=== PATIENT | female | born 1940 | race Caucasian/White ===

== ENCOUNTER 2020-05-22 15:38 | Outpatient (REF) | payer MEDICARE, SELFPAY ==
--- NOTE | ~2020-05-22 | XR_ITS ---
EXAMINATION: XR CHEST CLINICAL INFORMATION: Pleurodynia. COMPARISON: 03/28/2019 TECHNIQUE: 2 views of the chest were obtained. FINDINGS: There is elevation of the left hemidiaphragm with some basilar atelectasis related to distended stomach. No confluent pneumonitis identified. No pneumothorax or pleural effusion. No pleural thickening is appreciated. No destructive bony lesion identified on this plain film study. There is a stable compression fracture of what appears to be L1 body. Small lung volumes. XR/XR chest 2V IMPRESSION: No significant acute parenchymal disease. Elevation of the left hemidiaphragm with some basilar atelectasis.
[2020-05-22 16:20] LABS: MANUAL DIFF FLAG NO
[2020-05-22 16:28] LABS: Basophils Percent Auto 0.4 % (0-2); Eosinophils Absolute Auto 0.2 X10*3/uL (0.0-0.4); Eosinophils Percent Auto 2.2 % (0-4); Hematocrit 36.3 % (37-47); Hemoglobin 11.8 g/dl (12.0-16.0); Imm Gran Abs Auto 0.02 X10*3/uL (0.00-0.03); Imm Gran Pct Auto 0.2 % (0.0-0.4); Lymphocytes Absolute Auto 3.1 X10*3/uL (1.2-4.9); Mean Corpuscular HGB Conc 32.5 g/dl (31.0-35.0); Mean Corpuscular Volume 101.4 fL (80-98); Mean Platelet Volume 9.3 fL (9.4-12.3); Monocytes Percent Auto 10.5 % (2-11); Neutrophils Absolute Auto 4.8 X10*3/uL (2.0-8.3); Neutrophils Percent Auto 52.7 % (45-73); Platelet Count 229 X10*3/uL (160-400); Red Blood Count 3.58 X10*6/uL (4.20-5.50); Red Cell Distribution Width 13.2 % (11.0-16.0); White Blood Count 9.1 X10*3/uL (4.8-10.8)
[2020-05-22 16:56] LABS: Valproate 81.6 mcg/mL (50.0-100.0)
[2020-05-22 17:06] LABS: Alanine Aminotransferase 9 U/L (0-31); Albumin Level 4.1 g/dL (3.5-5.0); Alkaline Phosphatase 70 U/L (39-117); Anion Gap 15 (12-20); Aspartate Amino Transferase 20 U/L (5-31); Bilirubin Total 0.2 mg/dL (0.0-1.0); Blood Urea Nitrogen 23 mg/dL (9-16); Calcium 9.3 mg/dL (8.4-10.2); Carbon Dioxide 30 mmol/L (22-29); Chloride 102 mmol/L (96-108); Estimated Glomerular Filt Rate 51; Glucose Random 83 mg/dL (60-115); Potassium 4.4 mmol/L (3.3-5.1); Sodium 143 mmol/L (135-145); Total Protein 7.8 g/dL (6.5-8.0)
[2020-05-22 17:21] LABS: TSH reflex Free T4 1.02 uIU/mL (0.32-4.0)
== END 2020-05-22 15:39 | disposition home or self-care (01) ==
LOC: HO.LAB 15:38
PROVIDERS: Absent Provider Internal Medicine; PCP Internal Medicine; Visit Provider Psychiatry & Neurology Neurology
DX: E03.9 Hypothyroidism, unspecified (principal); R56.9 Unspecified convulsions; R07.81 Pleurodynia; D64.9 Anemia, unspecified
CPT/HCPCS: 36415; 71046; 80053; 80164; 84443; 85025

== ENCOUNTER 2020-08-09 12:46 | Emergency (ER) | payer MEDICARE, SELFPAY ==
[2020-08-09 12:50] VITALS: BP 95/60; PULSE 68; RESP 16; TEMP 36.7; O2SAT 99; BMI 24.2
--- NOTE | 2020-08-09 14:02 | ED.EYEPROB ---
HPI - Eye Problem General Chief complaint: Eye Problems Stated complaint: ear drops placed in eyes by mistake Time Seen by Provider: 08/09/20 13:27 Source: family Mode of arrival: wheelchair Limitations: other (dementia) History of Present Illness HPI Narrative: 79-year-old female with history of dementia presents the emergency department with caregiver for eye pain. Patient is an unreliable historian due to severe advanced dementia. Caregiver who is also her daughter states she accidentally put 1 drop in each eye of patient's ear drops by accident this morning after eating the ingredients it is 95% isopropyl alcohol. Since patient has been holding her eyes shut and seems be in pain. Daughter states he flushed the eyes thoroughly but due to concern felt she needed to be seen. Related Data Home Medications Medication Instructions Recorded Confirmed bisacodyl 10 mg rectal suppository 10 mg NC DAILY PRN 01/16/20 07/16/20 Previous Rx's Medication Instructions Recorded blood sugar diagnostic #10 ea 01/09/20 alcohol swabs 1 pad TOPICAL TID 30 Days #100 ea 03/06/20 biosynthetic glove #90 ea 03/06/20 underpads 2.6 X 2.9 feet #90 ea 03/06/20 albuterol sulfate 1.25 mg INHALATION TID PRN 60 Days 04/01/20 #90 ml divalproex 125 mg capsule,delayed 250 mg PO BID 30 Days #120 cap 04/18/20 release sprinkle adult pull-ups #120 ea 05/09/20 diaper,brief,adult,disposable #120 ea 05/09/20 nystatin 100,000 unit/gram topical 1 appl TOPICAL BID 14 Days #30 g 05/09/20 cream aspirin 81 mg tablet,delayed 81 mg PO DAILY #90 tab 06/21/20 release folic acid 1 mg tablet 1 mg PO DAILY #90 tab 06/21/20 levothyroxine 50 mcg tablet 50 mcg PO QAM #90 tab 06/21/20 miscellaneous medical supply See Rx Instructions MISCELLANEOUS 06/24/20 .COMPLEX #1 ea miscellaneous medical supply See Rx Instructions MISCELLANEOUS 06/24/20 .COMPLEX #1 ea nystatin 100,000 unit/gram topical 1 appl TOPICAL BID 30 Days #15 g 07/16/20 powder ofloxacin 2 drp OPHTHALMIC (EYE) QID #10 ml 08/09/20 Allergies Allergy/AdvReac Type Severity Reaction Status Date / Time atorvastatin Allergy Intermediate myalgia, Verified 08/09/20 12:48 constipation Review of Systems Review of Systems: Yes Unobtainable due to mental status [facility] Past Medical History Attestation statement: The following information was validated with the patient. Source: old records reviewed, obtained from family and nursing notes reviewed Medical History (Updated 08/09/20 @ 14:07 by BC Zurita) Blurry vision Candidal intertrigo Cataract Dementia Hypothyroidism Incontinence LANDY (obstructive sleep apnea) Physical exam, annual Rib pain Seizures Unsteady gait Surgical History No pertinent past surgical history Family History Family History Father No problems noted. Mother No problems noted. Maternal Grandmother Diabetes Hypertension Family/Other FH: mental illness Social History Social History Alcohol intake: never Advance Directives: Yes Advance Directives Information Provided: Yes Advance Directives on File: No Physical Exam Vital Signs: Vital Signs: Last Vital Signs Temp 98.1 F 08/09/20 12:50 Pulse 68 08/09/20 12:50 Resp 16 08/09/20 12:50 BP 95/60 08/09/20 12:50 Pulse Ox 99 08/09/20 12:50 Body Mass Index 24.2 vital signs have been reviewed as normal and appeared to be correct. Blood pressure normal. Heart rate normal. Respiration rate normal. Temperature normal. Oxygen saturation normal. Appearance: Alert. No acute distress. Head: Normal external exam. Normocephalic. Atraumatic. No Romero signs noted. No raccoon eyes noted Eyes: Conjunctiva and sclera injected and erythematous, PERRLA, patient holding eyes shut, exam is limited due to cognitive delay (dementia). PH of eyes bilterally is approx 7.5-8. ENT: EAC normal. Moist mucous membranes. No drooling noted. No muffled voice noted. Neck: Normal inspection. Neck supple. FROM. No meningeal signs. CVS: Pulses normal throughout. Respiratory: No respiratory distress. Painless inspiration. No accessory muscle usage noted Abdomen: No visible injury noted. Back: Full range of motion noted. Skin: Skin warm and dry. Normal skin color. Normal skin turgor. Extremities: No lower extremity edema. Extremities exhibit normal range of motion. Neuro: No motor deficit. MDM - Eye Problem MDM Narrative Medical decision making narrative: Patient's vital signs are stable and she is afebrile. Patient presenting to the ED with bilateral eye pain due to accidental eardrops administration. The ear drop itself was 95% isopropyl alcohol. PH shows bilateral eyes obtained with a value of approximately 7.5-8 which is reassuring. Tetracaine applied to both eyes for comfort. No signs corneal laceration or other trauma. Will prescribe ofloxacin per up-to-date recommendations for irritation and to help prevent infection. Patient's family is comfortable with this plan. Of note history and exam is limited due to patient's advanced dementia. Discharge Plan Discharge Clinical Impression: Conjunctival irritation Patient Disposition: Home, Self-Care Instructions: [facility] (ED) Additional Instructions: Your mother was seen in the ED today due to accidental eyedrop administration of ear drops. There was no permanent injuries to the eyes however the irritation she is experiencing is likely causing pain. She will be prescribed and eyedrops to help with pain and prevent infection. Follow up with her primary care doctor and/or eye doctor and if new or concerning symptoms develop. Prescriptions: New ofloxacin 0.3 % drops 2 drp ophthalmic (eye) QID Qty: 10 RF: 0 No Action (DME) Accu-Chek Arianne Plus test strp Strip See Rx Instructions .ROUTE .MEDSUPPLY Qty: 10 RF: 2 (DME) Goodnites Bed Mats 2.6 X 2.9 feet pad See Rx Instructions .ROUTE .MEDSUPPLY Qty: 90 RF: 11 alcohol swabs [Alcohol Wipes] Pads, Medicated 1 pad topical TID 30 Days Qty: 100 RF: 11 (DME) Biobrane Gloves Small Bandage See Rx Instructions .ROUTE .MEDSUPPLY Qty: 90 RF: 11 albuterol sulfate 2.5 mg /3 mL (0.083 %) solution for nebulization 1.25 mg inhalation TID PRN (Reason: shortness of breath or wheezing) 60 Days Qty: 90 RF: 6 divalproex 125 mg capsule, delayed rel sprinkle 250 mg PO BID 30 Days Qty: 120 RF: 6 folic acid 1 mg tablet 1 mg PO DAILY Qty: 90 RF: 3 aspirin 81 mg tablet,delayed release (DR/EC) 81 mg PO DAILY Qty: 90 RF: 3 levothyroxine 50 mcg tablet 50 mcg PO QAM Qty: 90 RF: 1 miscellaneous medical supply Misc See Rx Instructions miscellaneous .COMPLEX Qty: 1 RF: 0 miscellaneous medical supply Misc See Rx Instructions miscellaneous .COMPLEX Qty: 1 RF: 0 bisacodyl 10 mg suppository 10 mg NC DAILY PRNRF: 0 nystatin 100,000 unit/gram cream 1 appl topical BID 14 Days Qty: 30 RF: 3 (DME) adult pull-ups medium See Rx Instructions .Route .MEDSUPPLY Qty: 120 RF: 11 (DME) diaper,brief,adult,disposable Misc See Rx Instructions .ROUTE .MEDSUPPLY Qty: 120 RF: 11 nystatin 100,000 unit/gram powder 1 appl topical BID 30 Days Qty: 15 RF: 3 Referrals: Jodie Nieto MD [Primary Care Provider] - 2 days Interventions: ED Discharge Assessment Last Done: 08/09/20 14:22 Discharge Date/Time: 08/09/20 14:23 Print Language: Belarusian
--- NOTE | 2020-08-09 14:30 | PC.NURSE ---
pt unable to perform visual acuity
== END 2020-08-09 14:23 | disposition home or self-care (01) ==
PROVIDERS: Emergency Provider Emergency Medicine; PCP Internal Medicine
DX: H11.89 Other specified disorders of conjunctiva (principal); F03.90 Unspecified dementia, unspecified severity, without behavioral disturbance, psychotic disturbance, mood disturbance, and anxiety
CPT/HCPCS: 99283

== ENCOUNTER 2020-09-27 08:53 | Outpatient (REF) | payer MEDICARE, SELFPAY ==
[2020-09-27 10:42] LABS: Valproate 63.3 mcg/mL (50.0-100.0)
== END 2020-09-27 08:54 | disposition home or self-care (01) ==
LOC: HO.LAB 08:53
PROVIDERS: PCP Internal Medicine; Visit Provider Psychiatry & Neurology Neurology
DX: R56.9 Unspecified convulsions (principal); Z79.899 Other long term (current) drug therapy
CPT/HCPCS: 36415; 80164

== ENCOUNTER 2020-11-20 15:27 | Outpatient (REF) | payer MEDICARE, SELFPAY ==
[2020-11-20 17:42] LABS: Appearance Urine HAZY; Color Urine YELLOW; Glucose Urine UA NEG (NEG); Leukocyte Esterase Urine 3+ (NEG); Nitrite Urine POS (NEG); Specific Gravity - Urine 1.015 (1.005-1.025); UACC Culture Trigger YES; Urine Blood 1+ (NEG); Urine Ketones NEG (NEG); Urine Protein NEG (NEG-TRACE)
[2020-11-20 18:03] LABS: Bacteria Urine 4+ /LPF; Squamous Epithelial Cell Urine 1+ /LPF; WBC Urine 50-75 /HPF (0-4)
== END 2020-11-20 15:28 | disposition home or self-care (01) ==
LOC: HO.LAB 15:27
PROVIDERS: PCP Internal Medicine; Visit Provider Internal Medicine
DX: R32 Unspecified urinary incontinence (principal)
CPT/HCPCS: 81001; 87086

== ENCOUNTER 2020-11-27 22:00 | Outpatient (REF) | payer MEDICARE, SELFPAY ==
[2020-11-28 10:05] LABS: Appearance Urine CLEAR; Color Urine YELLOW; Glucose Urine UA NEG (NEG); Leukocyte Esterase Urine NEG (NEG); Nitrite Urine NEG (NEG); UACC Culture Trigger NO; Urine Blood 1+ (NEG); Urine Ketones NEG (NEG); Urine Protein NEG (NEG-TRACE)
[2020-11-28 10:37] LABS: Squamous Epithelial Cell Urine 2+ /LPF
== END 2020-11-27 22:01 | disposition home or self-care (01) ==
LOC: HO.LHD 22:00
PROVIDERS: Visit Provider Internal Medicine
DX: R32 Unspecified urinary incontinence (principal)
CPT/HCPCS: 81001; 81003

== ENCOUNTER 2020-11-28 10:47 | Outpatient (REF) | payer OTHER, SELFPAY ==
[2020-11-28 09:11] LABS: MANUAL DIFF FLAG NO
[2020-11-28 09:12] LABS: Basophils Percent Auto 0.5 % (0-2); Eosinophils Absolute Auto 0.4 X10*3/uL (0.0-0.4); Eosinophils Percent Auto 5.2 % (0-4); Hematocrit 34.9 % (37-47); Hemoglobin 11.4 g/dl (12.0-16.0); Imm Gran Abs Auto 0.02 X10*3/uL (0.00-0.03); Imm Gran Pct Auto 0.3 % (0.0-0.4); Lymphocytes Absolute Auto 2.7 X10*3/uL (1.2-4.9); Lymphocytes Percent Auto 34.8 % (20-40); Mean Corpuscular HGB Conc 32.7 g/dl (31.0-35.0); Mean Corpuscular Hemoglobin 32.9 pg (27.0-33.0); Mean Corpuscular Volume 100.6 fL (80-98); Mean Platelet Volume 9.2 fL (9.4-12.3); Monocytes Absolute Auto 0.7 X10*3/uL (0.1-1.2); Monocytes Percent Auto 8.8 % (2-11); Neutrophils Absolute Auto 3.9 X10*3/uL (2.0-8.3); Neutrophils Percent Auto 50.4 % (45-73); Platelet Count 215 X10*3/uL (160-400); Red Blood Count 3.47 X10*6/uL (4.20-5.50); Red Cell Distribution Width 13.1 % (11.0-16.0); White Blood Count 7.8 X10*3/uL (4.8-10.8)
[2020-11-28 10:00] LABS: Alanine Aminotransferase 10 U/L (0-31); Albumin Level 3.8 g/dL (3.5-5.0); Alkaline Phosphatase 62 U/L (39-117); Anion Gap 11 (12-20); Aspartate Amino Transferase 17 U/L (5-31); Bilirubin Total 0.2 mg/dL (0.0-1.0); Blood Urea Nitrogen 23 mg/dL (9-16); Carbon Dioxide 28 mmol/L (22-29); Chloride 106 mmol/L (96-108); Estimated Glomerular Filt Rate 34; Glucose Fasting 86 mg/dL (60-99); Potassium 4.7 mmol/L (3.3-5.1); Sodium 140 mmol/L (135-145); Total Protein 7.2 g/dL (6.5-8.0)
[2020-11-28 10:21] LABS: TSH reflex Free T4 3.18 uIU/mL (0.32-4.0)
== END 2020-11-28 10:48 | disposition home or self-care (01) ==
LOC: HO.LHD 10:47
PROVIDERS: Visit Provider Internal Medicine
DX: E03.9 Hypothyroidism, unspecified (principal); F03.90 Unspecified dementia, unspecified severity, without behavioral disturbance, psychotic disturbance, mood disturbance, and anxiety
CPT/HCPCS: 36415; 80053; 84443; 85025

== ENCOUNTER 2021-08-29 10:38 | Outpatient (REF) | payer OTHER, SELFPAY ==
[2021-08-29 15:36] LABS: Appearance Urine CLEAR; Color Urine YELLOW; Glucose Urine UA NEG (NEG); Leukocyte Esterase Urine TRACE (NEG); Nitrite Urine NEG (NEG); UACC Culture Trigger NO; Urine Blood 2+ (NEG); Urine Ketones NEG (NEG); Urine Protein NEG (NEG-TRACE)
[2021-08-29 15:55] LABS: Bacteria Urine TRACE /LPF; Squamous Epithelial Cell Urine TRACE /LPF
== END 2021-08-29 10:39 | disposition home or self-care (01) ==
LOC: HO.LAB 10:38
PROVIDERS: PCP Internal Medicine; Visit Provider Internal Medicine
DX: R30.0 Dysuria (principal)
CPT/HCPCS: 81001

== ENCOUNTER → 2022-06-18 14:28 | Outpatient (BNVA) | payer OTHER, SELFPAY | PROVIDERS: PCP Internal Medicine; Visit Provider Psychiatry & Neurology Neurology | DX: G30.0 Alzheimer's disease with early onset (principal); F02.818 Dementia in other diseases classified elsewhere, unspecified severity, with other behavioral disturbance; R56.9 Unspecified convulsions | CPT/HCPCS: 99202 ==

== ENCOUNTER 2022-11-19 13:44 | Inpatient (IN) | payer OTHER, SELFPAY ==
[2022-11-19] VITALS (7 sets, daily range): BP systolic 80–123; BP diastolic 42–74; PULSE 64–104; RESP 16–184; TEMP 36.1–38.1; O2SAT 93–100; BMI 19.5; BMI 22.6
--- NOTE | ~2022-11-19 | XR_ITS ---
EXAMINATION: XR CHEST CLINICAL INFORMATION: Generalized weakness COMPARISON: 05/22/2020 TECHNIQUE: Frontal view of the chest was obtained. FINDINGS: Limited exam. Low lung volumes. There is no convincing evidence for an acute process. Exam is felt to be comparable to previous. No obvious failure or significant infiltrate here. Cardiac silhouette is comparable. The hilar structures are felt to be comparable. XR/XR chest 1V IMPRESSION: Low lung volumes. No convincing evidence for an acute process.
--- NOTE | ~2022-11-19 | CT_ITS ---
EXAMINATION: CT abdomen pelvis wo IV con CLINICAL INFORMATION: Reason for Exam abdominal pain COMPARISON: No prior CT available for comparison. TECHNIQUE: Multidetector volumetric imaging was performed from the superior aspect of the liver through the pubic symphysis a noncontrasted study. Sagittal and coronal reformatted images were obtained on the technologist's workstation. This CT examination was performed using dose optimization techniques as appropriate, variously including the following: *Automated exposure control *Adjustment of mA and/or kV according to patient size (this includes techniques or standardized protocols for targeted exams where dose is matched to indication/reason for exam; i.e. extremities or head) *Use of iterative reconstruction technique DLP: 465 mGy-cm FINDINGS: Exam is limited, noncontrasted study, also patient's hand placed over the abdomen causing beam hardening artifact. There is motion artifacts. LOWER THORAX: Bibasilar infiltrate/atelectasis and small bilateral pleural effusions. HEPATOBILIARY: Evaluation of the liver is limited on this noncontrasted study. Liver is normal in size homogeneous. GALLBLADDER: Gallbladder unremarkable. SPLEEN: Spleen is normal in size. PANCREAS: No focal mass or ductal dilatation. STOMACH AND GASTROINTESTINAL TRACT: Stomach is nondistended unopacified. Excess amount of stool in the colon suggesting constipation. There is heavy sigmoid diverticulosis without evidence of diverticulitis. No CT evidence of appendicitis. ADRENALS: No adrenal nodules. KIDNEYS/URETERS: There is mild right renal hydronephrosis and hydroureter due to 3 mm stone lodged in the distal right ureter. There is mild right perinephric fat stranding. Left kidney is normal. URINARY BLADDER: Partially decompressed. PELVIC VISCERA: Unremarkable PERITONEUM: No free air or fluid. LYMPH NODES: No lymphadenopathy. VASCULAR:Abdominal aorta normal in size, no aneurysm found. BONES, ABDOMINAL WALL AND SOFT TISSUES: There are compression fractures of L1, the vertebral loss approximately two third of its height. And superior endplate of L4, indeterminant age. CT/CT abdomen pelvis wo IV con IMPRESSION: Very limited exam due to motion artifact, noncontrasted study, and position. * Mild right renal hydronephrosis and hydroureter due to 3 mm stone lodged in the distal right ureter. * Heavy sigmoid diverticulosis without evidence of acute diverticulitis. * Excess amount of stool in the colon suggesting constipation. * Bibasilar infiltrate/atelectasis and small bilateral pleural effusions. * Compression fractures of L1 and superior endplate of L4. (Referring physician staff is being called, by physician staff assistance, to be alerted of the above critical findings and recommendations.) A J 11/22/2022 4:03 PM
--- NOTE | ~2022-11-19 | FL_ITS ---
EXAMINATION: XR FLUOROSCOPY WITH IMAGES CLINICAL INFORMATION: Cystoscopy, retrograde and laser. COMPARISON: Previous CT of the abdomen and pelvis 11/22/2022. TECHNIQUE: Fluoroscopy Supervised By: Dr. Joyce. Fluoroscopy Time: 35.4 sec. Dose: 457 mGy. Images: 2. FINDINGS: Two images demonstrate the distal end of a right internal ureteral stent in bladder. FL/FL guidance in OR IMPRESSION: Fluoroscopy guidance for urology procedure.
--- NOTE | 2022-11-19 13:49 | ECG_ITS ---
Test Reason : htn Blood Pressure : / mmHG Vent. Rate : 089 BPM Atrial Rate : 089 BPM P-R Int : 142 ms QRS Dur : 080 ms QT Int : 356 ms P-R-T Axes : 014 -26 019 degrees QTc Int : 433 ms Normal sinus rhythm Normal ECG When compared with ECG of 22-MAR-2019 08:03, ST no longer depressed in Anterior leads Referred By: Gilberto Leroy Electronically Signed By:CHAPO CURTIS
--- NOTE | 2022-11-19 13:59 | ED.GENADULT ---
HPI - General Adult General Chief complaint: General Medical Stated complaint: sepsis? Time Seen by Provider: 11/19/22 13:49 Source: family ( daughter), EMS and marketing technology coordinator Mode of arrival: EMS Limitations: other ( dementia.) History of Present Illness HPI narrative: 82-year-old female brought in by EMS and family for evaluation of possible sepsis. Patient with known history of advanced dementia patient is bedbound recently diagnosed and treated for UTI patient was found by a visiting nurse to be hypotensive 70/50 IV access was placed patient was given 1 L of fluid and patient was transported to the hospital, as per EMS patient's blood pressure has been improved after the fluid systolic is over was above 100 according to their evaluation. Related Data Previous Rx's Medication Instructions Recorded blood sugar diagnostic (Accu-Chek #10 ea 01/09/20 Arianne Plus test strips) albuterol sulfate 2.5 mg/3 mL 1.25 mg (1.5 mL) inhalation TID 09/28/20 (0.083 %) solution for nebulization PRN shortness of breath or wheezing 2 months #90 mL folic acid 1 mg tablet 1 mg PO DAILY #90 tabs 09/28/20 lidocaine 5 % topical patch 1 patch topical DAILY 30 days #30 01/17/21 ea multivitamin 1 tab PO DAILY 90 days #90 tabs 01/20/21 pillow #1 ea 03/06/21 wheelchair #1 ea 03/06/21 erythromycin 5 mg/gram (0.5 %) eye 1 appl ophthalmic (eye) DAILY 7 04/15/21 ointment days #3.5 grams levothyroxine 50 mcg tablet 50 mcg PO QAM for disorder of 10/04/21 thyroid gland #90 tabs nystatin 100,000 unit/gram topical 1 appl topical BID 2 weeks #15 10/11/21 cream grams hydrocortisone 1 % topical cream 1 appl topical BID PRN skin 11/02/21 (Anti-Itch (hydrocortisone)) irritation 30 days #28.4 grams bisacodyl 10 mg rectal suppository 10 mg WA DAILY PRN constipation 90 11/23/21 days #50 ea adult pull-ups #120 ea 02/19/22 biosynthetic glove (Biobrane #180 ea 02/19/22 Gloves Small bandage) underpads 2.6 X 2.9 feet #90 ea 02/19/22 (Goodnites Bed Mats) wipes #300 ea 02/19/22 aspirin 81 mg tablet,delayed 81 mg PO DAILY #90 tabs 06/18/22 release divalproex 125 mg capsule,delayed 375 mg (3 x 125 mg) PO BID 90 days 06/18/22 release sprinkle #540 caps triamcinolone acetonide 0.1 % 1 appl topical BID 15 days #30 08/12/22 topical cream grams Allergies Allergy/AdvReac Type Severity Reaction Status Date / Time No Known Allergies Allergy Verified 06/18/22 14:33 Review of Systems Review of Systems: All other systems are reviewed and are negative Constitutional: Reports as per HPI and Reports no additional constitutional complaints Eyes: Reports as per HPI and Reports no additional eye complaints Reports system reviewed and no additional complaints, except as documented Cardiovascular: Reports as per HPI and Reports no additional cardiovascular complaints Respiratory: Reports as per HPI and Reports no additional respiratory complaints Gastrointestinal: Reports as per HPI and Reports no additional gastrointestinal complaints Genitourinary: Reports no additional female genitourinary complaints Musculoskeletal: Reports no additional musculoskeletal complaints Skin/Breast: Reports system reviewed and no additional complaints, except as docu Psychiatric: Reports no additional psychiatric complaints Endocrine: Reports no additional endocrine complaints Hematologic/Lymphatic: Reports no additional hematologic/lymphatic complaints Allergic/Immunologic: Reports no additional allergic/immunologic complaints Reports system reviewed and no additional complaints, except as documented and Reports Abnormal speech present [facility] Past Medical History Medical History Pure hypercholesterolemia Rash Wheelchair bound Urinary incontinence Blurry vision Rib pain Candidal intertrigo Seizures Cataract Unsteady gait LANDY (obstructive sleep apnea) Incontinence Dementia Physical exam, annual Hypothyroidism Surgical History No pertinent past surgical history Family History Family History Father No problems noted. Mother No problems noted. Maternal Grandmother Diabetes Hypertension Family/Other FH: mental illness Social History Social History Housing: Apartment Alcohol intake: never Patient Tobacco Use Status: Never used Tobacco Smoked in Last 30 Days: No e-Cigarette/Vaping Use: Never Used Second Hand Smoke Exposure: No Use of substances other than those prescribed or required for medical reasons: No Advance Directives: No Advance Directives Information Provided: Yes service: No Current occupational status: disabled Cognitive needs: Yes Hearing needs: No Vision needs: No Physical Exam ED Vital Signs: Vital Signs - 24 hr 11/19/22 14:31 11/19/22 15:49 11/19/22 16:00 Temperature 97.1 F 97.0 F 98.2 F Pulse Rate 97 65 91 Respiratory Rate 18 18 20 Blood Pressure 106/74 95/52 L 89/71 L Pulse Oximetry 97 99 99 Oxygen Delivery Method Nasal Cannula Nasal Cannula Nasal Cannula Oxygen Flow Rate 2 2 11/19/22 17:07 11/19/22 17:49 Temperature 98.1 F Pulse Rate 103 H 96 Respiratory Rate 184 H 16 Blood Pressure 119/72 123/71 Pulse Oximetry 99 100 Oxygen Delivery Method Nasal Cannula Nasal Cannula Oxygen Flow Rate 2 2 BMI result Body Mass Index 19.5 Appearance: Alert. No acute distress. in bed contracted, cachectic, disregard examiner. Head: Normal external exam. Normocephalic. Atraumatic. No Romero signs noted. No raccoon eyes noted Eyes: PERRLA. EOMI. Conjunctiva and sclera normal. Eyelids normal. ENT: TM's Normal. Pharynx normal. Uvula midline. Moist mucous membranes. No trismus noted. No drooling noted. No muffled voice noted. Neck: Normal inspection. Neck supple. FROM. No adenopathy. Thyroid Normal. No meningeal signs. No neck mass noted. CVS: Normal heart rate and rhythm. Heart sound normal. No murmurs noted. Pulses normal throughout. Respiratory: No respiratory distress. Painless inspiration. Breath sounds normal. No wheezes/rales/rhonchi noted. Chest nontender. No accessory muscle usage noted or decreased air movement noted. Abdomen: Soft and nontender. Bowel sounds normal in all 4 quadrants. No distention noted. No organomegaly noted. No visible injury noted. Back: No CVA tenderness. Full range of motion noted. area of early decubitus irritation,but no ulceration. Skin: Skin warm and dry. Normal skin color. Normal skin turgor. No rashes/lesions/lacerations noted. Extremities: No lower extremity edema. Extremities exhibit normal range of motion. Extremities nontender. Neuro: At baseline as per family patient is a was bedbound contracted. Course Course Course Narrative: 82-year-old female came in found to be hypotensive and having urosepsis, patient responded to IV hydration and becoming normotensive now. Patient received IV hydration and 1 dose of ceftriaxone. Will admit the patient for further evaluation. Reevaluation(s) Reevaluation #1: Focused exam: Patient is normotensive now received 1360 cc of normal saline and 1 g of ceftriaxone. No lactic acidosis. Time: 18:30 Medications Administered Discontinued Medications Generic Name Dose Route Start Last Admin Trade Name Freq PRN Reason Stop Dose Admin Sodium Chloride 1,000 mls @ 999 mls/hr 11/19/22 13:49 11/19/22 15:14 Ns IV 11/19/22 14:49 Infused .Q1H1M ONE Infusion Ceftriaxone Sodium 1 gm/ 50 mls @ 100 mls/hr 11/19/22 14:07 11/19/22 16:09 Sodium Chloride IV 11/19/22 14:36 Infused ONCE ONE Infusion Sodium Chloride 1,360.77 mls @ 1,360.77 mls/hr 11/19/22 16:37 11/19/22 18:25 Ns 30 ml/kg infuse over 1 hr (1360.77 ml) 11/19/22 17:36 Infused IV Infusion .Q1H STA Medical Decision Making Differential Diagnosis Differential Diagnoses: The differential diagnosis associated with the presentation includes ( Septic shock, UTI, pneumonia, pleural effusion, CHF, electrolyte abnormality, sacral decubitus.) Admission/Observation Consideration of admission/observation: Escalation of care including admission/observation considered Consult Healthcare Provider Management of the patient was discussed with: Hospitalist (Dr. Goodwin) Lab Data MDM Lab Attestation statement: I reviewed the patient's lab results. 11/19/22 15:52 11/19/22 15:52 Labs: Lab Results 11/19/22 11/19/22 Range/Units 14:29 15:52 WBC 10.9 H (4.8-10.8) X10*3/uL RBC 2.84 L (4.20-5.50) X10*6/uL Hgb 9.7 L (12.0-16.0) g/dl Hct 28.7 L (37.0-47.0) % MCV 101.1 H (80.0-98.0) fL MCH 34.2 H (27.0-33.0) pg MCHC 33.8 (31.0-35.0) g/dl RDW 14.4 (11.0-16.0) % Plt Count 147 L (160-400) X10*3/uL MPV 9.3 L (9.4-12.3) fL Immature Gran % (Auto) 0.4 (0.0-0.4) % Neut % (Auto) 72.4 (45-73) % Lymph % (Auto) 15.2 L (20-40) % [place] % (Auto) 11.8 H (2-11) % Eos % (Auto) 0.1 (0-4) % Baso % (Auto) 0.1 (0-2) % Lymph # (Auto) 1.7 (1.2-4.9) X10*3/uL [place] # (Auto) 1.3 H (0.1-1.2) X10*3/uL Eos # (Auto) 0.0 (0.0-0.4) X10*3/uL Baso # (Auto) 0.0 (0.0-0.2) X10*3/uL Abs Immat Gran (auto) 0.04 H (0.00-0.03) X10*3/uL Absolute Neuts (auto) 7.9 (2.0-8.3) x10*3/uL Absolute Nucleated RBC 0.000 (0.0-0.012) X10*3/uL Nucleated RBC % (auto) 0.0 (0.0-0.2) /100WBC Sodium 137 (135-145) mmol/L Potassium 3.6 D (3.3-5.1) mmol/L Chloride 100 (96-108) mmol/L Carbon Dioxide 28 (22-29) mmol/L Anion Gap 13 (12-20) BUN 26 H (9-16) mg/dL Creatinine 1.26 (0.5-1.4) mg/dL Estim Creat Clear Calc 24.6 Estimated GFR 41 Random Glucose 77 (60-115) mg/dL Lactic Acid 1.7 (0.5-2.0) mmol/L Calcium 8.8 (8.4-10.2) mg/dL Total Bilirubin 0.1 (0.0-1.0) mg/dL Direct Bilirubin < 0.2 (0.0-0.5) mg/dL AST 19 (5-31) U/L ALT 10 (0-31) U/L Alkaline Phosphatase 48 (39-117) U/L Troponin I High Sens 4.7 (<3.5-17.0) ng/L B-Natriuretic Peptide 77 (<100) pg/mL Total Protein 7.0 (6.5-8.0) g/dL Albumin 3.1 L (3.5-5.0) g/dL Lipase 27 (8-78) U/L Urine Color Yellow Urine Appearance Turbid Urine pH 5.5 (5.0-9.0) Ur Specific [place] 1.015 (1.005-1.025) Urine Protein 100 (2+) H (Neg-Trace) mg/dL Urine Glucose (UA) Negative (Negative) mg/dL Urine Ketones Negative (Negative) mg/dL Urine Blood Large (3+) H (Negative) Urine Nitrite Positive H (Negative) Ur Leukocyte Esterase Large (3+) H (Negative) Urine RBC 11-20 H (0-2) /HPF Urine WBC >50 H (0-5) /HPF Ur Squamous Epith Cells >20 (0-2) /HPF Urine Bacteria 4+ (None Seen) Hyaline Casts 3-5 (0-2) /LPF Influenza Type A (PCR) NEGATIVE (Negative) Influenza Type B (PCR) NEGATIVE (Negative) RSV RNA Qual (PCR) NEGATIVE (Negative) SARS-CoV-2 RNA (RT-PCR) NEGATIVE (Negative) Independent Interpretation I performed an independent interpretation of an: Plain X-Ray ( chest: No acute intrathoracic pathology.) Radiology Impression Discussion of test interpretation with radiology: I have reviewed the radiologist's reading. Critical Care Time Critical Care Time Critical Care Time: Yes Total Critical Care Time: 60 Attestation: I spent 60 minutes providing critical care service to the patient, this including time spent at the bedside to evaluate the patient, reassess the patient, monitoring vital signs, review labs, and radiographic studies, counseling the patient/family, discussing the case with consultants, disposition the patient. Discharge Plan Discharge Clinical Impression: Septic shock, Acute UTI Patient Disposition: Admitted As Inpatient
[2022-11-19] MEDS: 0.9 % Sodium Chloride 1,000 ML 999 ML IV (14:04)
[2022-11-19 14:36] LABS: Appearance Urine Turbid; Color Urine Yellow; Glucose Urine UA Negative (Negative); Leukocyte Esterase Urine Large (3+) (Negative); Nitrite Urine Positive (Negative); PH 5.5 (5.0-9.0); Specific Gravity - Urine 1.015 (1.005-1.025); UMIC TRIGGER UACC YES; Urine Blood Large (3+) (Negative); Urine Ketones Negative (Negative); Urine Protein 100 (2+) mg/dL (Neg-Trace)
[2022-11-19 14:55] LABS: Bacteria Urine 4+ (None Seen); Squamous Epithelial Cell Urine >20 /HPF (0-2); UACC Culture Trigger YES; WBC Urine >50 /HPF (0-5)
[2022-11-19] MEDS: cefTRIAXone sodium 1 GM in 0.9 % Sodium Chloride 50 ML IV (15:34)
[2022-11-19 16:00] LABS: MANUAL DIFF FLAG NO
[2022-11-19 16:02] LABS: Basophils Percent Auto 0.1 % (0-2); Eosinophils Percent Auto 0.1 % (0-4); Hematocrit 28.7 % (37.0-47.0); Hemoglobin 9.7 g/dl (12.0-16.0); Imm Gran Abs Auto 0.04 X10*3/uL (0.00-0.03); Imm Gran Pct Auto 0.4 % (0.0-0.4); Lymphocytes Absolute Auto 1.7 X10*3/uL (1.2-4.9); Lymphocytes Percent Auto 15.2 % (20-40); Mean Corpuscular HGB Conc 33.8 g/dl (31.0-35.0); Mean Corpuscular Hemoglobin 34.2 pg (27.0-33.0); Mean Corpuscular Volume 101.1 fL (80.0-98.0); Mean Platelet Volume 9.3 fL (9.4-12.3); Monocytes Absolute Auto 1.3 X10*3/uL (0.1-1.2); Monocytes Percent Auto 11.8 % (2-11); Neutrophils Absolute Auto 7.9 x10*3/uL (2.0-8.3); Neutrophils Percent Auto 72.4 % (45-73); Platelet Count 147 X10*3/uL (160-400); Red Blood Count 2.84 X10*6/uL (4.20-5.50); Red Cell Distribution Width 14.4 % (11.0-16.0); White Blood Count 10.9 X10*3/uL (4.8-10.8)
[2022-11-19 16:14] LABS: Lactic Acid 1.7 mmol/L (0.5-2.0)
[2022-11-19 16:18] LABS: Alanine Aminotransferase 10 U/L (0-31); Albumin Level 3.1 g/dL (3.5-5.0); Alkaline Phosphatase 48 U/L (39-117); Anion Gap 13 (12-20); Aspartate Amino Transferase 19 U/L (5-31); Bilirubin Direct < 0.2 mg/dL (0.0-0.5); Bilirubin Total 0.1 mg/dL (0.0-1.0); Blood Urea Nitrogen 26 mg/dL (9-16); Calcium 8.8 mg/dL (8.4-10.2); Carbon Dioxide 28 mmol/L (22-29); Chloride 100 mmol/L (96-108); Creatinine Clr Calc Pharmacy 24.6; Estimated Glomerular Filt Rate 41; Glucose Random 77 mg/dL (60-115); Lipase 27 U/L (8-78); Potassium 3.6 mmol/L (3.3-5.1); Sodium 137 mmol/L (135-145)
[2022-11-19 16:21] LABS: B Type Natriuretic Peptide 77 pg/mL (<100)
[2022-11-19 16:25] LABS: Troponin-I High Sensitivity 4.7 ng/L (<3.5-17.0)
[2022-11-19 16:38] LABS: Influenza A PCR NEGATIVE (Negative); Influenza B PCR NEGATIVE (Negative); Resp Syncy Virus RNA Qual PCR NEGATIVE (Negative); SARS COV2 PCR INHOUSE NEGATIVE (Negative)
[2022-11-19] MEDS: 0.9 % Sodium Chloride 1,360.77 ML 1360.77 ML IV (16:45)
--- NOTE | 2022-11-19 19:02 | PHA.MEDREC ---
Pharmacy Consult ? Medication Reconciliation Pharmacy has completed the medication reconciliation. Patient's daughter had prescription medications and reported otc medications.
--- NOTE | 2022-11-19 19:34 | P.HPHOSP_ITS ---
History of Present Illness Date of Service: 11/19/22 Chief Complaint: Hypotension This is a 82-year-old female with pertinent history of hypothyroidism, seizure disorder, unspecified dementia who was brought to the emergency department for evaluation of hypotension. Patient was recently treated for UTI as an outpatient. Visiting nurse found patient to be hypotensive and sent to the ER. Upon EMS arrival, patient systolics were in the 70s. She was resuscitated with IV crystalloids with improvement of systolic blood pressure. Unable to obtain history from the patient. History obtained from family at bedside and ER provider. Patient has been more lethargic over the last 1-2 days. Also has been having fevers and chills. Unable to obtain review of systems. In the emergency department, patient was found to be septic and urine concerning for UTI. Review of Systems 2 Review of Systems: Yes Unobtainable due to mental status PMFSH Medical History Pure hypercholesterolemia Rash Wheelchair bound Urinary incontinence Blurry vision Rib pain Candidal intertrigo Seizures Cataract Unsteady gait LANDY (obstructive sleep apnea) Incontinence Dementia Physical exam, annual Hypothyroidism Family History Father No problems noted. Mother No problems noted. Maternal Grandmother Diabetes Hypertension Family/Other FH: mental illness Surgical History No pertinent past surgical history Social History Housing: Apartment Alcohol intake: never Patient Tobacco Use Status: Never used Tobacco Smoked in Last 30 Days: No e-Cigarette/Vaping Use: Never Used Second Hand Smoke Exposure: No Use of substances other than those prescribed or required for medical reasons: No Advance Directives: No Advance Directives Information Provided: Yes service: No Current occupational status: disabled Cognitive needs: Yes Hearing needs: No Vision needs: No Meds Allergies Allergy/AdvReac Type Severity Reaction Status Date / Time No Known Allergies Allergy Verified 06/18/22 14:33 Physical Exam 2 Vital Signs and Narrative: Vital Signs: Last Vital Signs Temp 98.1 F 11/19/22 17:07 Pulse 96 09/21/23 17:49 Resp 16 11/19/22 17:49 BP 123/71 11/19/22 17:49 Pulse Ox 100 11/19/22 17:49 O2 Del Method Nasal Cannula 11/19/22 17:49 O2 Flow Rate 2 11/19/22 17:49 Oxygen Flow Rate 2 11/19/22 14:31 BMI result Body Mass Index 19.5 Elderly female lying in bed in no distress Neck supple, no JVD Regular rate and rhythm, S1-S2 heard Decreased breath sounds at bases Abdomen soft nontender, no guarding, no rigidity Patient is drowsy and only eye opening to verbal stimulus, not following commands, not conversational Psych: Lethargic No pedal edema Results Labs 11/19/22 15:52 11/19/22 15:52 Labs: Laboratory Results - last 24 hr 11/19/22 11/19/22 14:29 15:52 MCV 101.1 H MCH 34.2 H MCHC 33.8 RDW 14.4 Plt Count 147 L MPV 9.3 L Immature Gran % (Auto) 0.4 Neut % (Auto) 72.4 Lymph % (Auto) 15.2 L [place] % (Auto) 11.8 H Eos % (Auto) 0.1 Baso % (Auto) 0.1 Lymph # (Auto) 1.7 [place] # (Auto) 1.3 H Eos # (Auto) 0.0 Baso # (Auto) 0.0 Abs Immat Gran (auto) 0.04 H Absolute Neuts (auto) 7.9 Absolute Nucleated RBC 0.000 Nucleated RBC % (auto) 0.0 Anion Gap 13 Estim Creat Clear Calc 24.6 Estimated GFR 41 Random Glucose 77 Lactic Acid 1.7 Calcium 8.8 Total Bilirubin 0.1 Direct Bilirubin < 0.2 AST 19 ALT 10 Alkaline Phosphatase 48 B-Natriuretic Peptide 77 Total Protein 7.0 Albumin 3.1 L Lipase 27 Urine Color Yellow Urine Appearance Turbid Urine pH 5.5 Ur Specific [place] 1.015 Urine Protein 100 (2+) H Urine Glucose (UA) Negative Urine Ketones Negative Urine Blood Large (3+) H Urine Nitrite Positive H Ur Leukocyte Esterase Large (3+) H Urine RBC 11-20 H Urine WBC >50 H Ur Squamous Epith Cells >20 Urine Bacteria 4+ Hyaline Casts 3-5 Influenza Type A (PCR) NEGATIVE Influenza Type B (PCR) NEGATIVE RSV RNA Qual (PCR) NEGATIVE SARS-CoV-2 RNA (RT-PCR) NEGATIVE Imaging Radiologist's Impressions: Impressions Chest X-Ray 11/19/22 14:59 IMPRESSION: Low lung volumes. No convincing evidence for an acute process. Assessment and Plan (1) Acute UTI: Status: Acute Plan This is a 82-year-old female with pertinent history of hypothyroidism, seizure disorder, unspecified dementia who was brought to the emergency department for evaluation of hypotension. #. Sepsis due to acute UTI. Resuscitated with IV crystalloids. Lactic acid and blood culture obtained. Initiating empiric IV antibiotics. Urine culture pending #. Acute metabolic encephalopathy in the setting of above. Will keep patient NPO until mentation improves #. Seizure disorder on divalproex #. Unspecified dementia. Maintain sleep-wake cycle Med rec pending DVT prophylaxis: Lovenox Full code Admit as inpatient and will require two night minimum hospital stay for IV antibiotics Time Spent With Patient Time: Total time managing care of this patient today ____ minutes. Quality Stroke Does the patient have a stroke diagnosis?: No VTE Prior VTE?: No VTE Risk Level:: Medical - moderate - high VTE Device Contraindication: Treatment Not Indicated VTE Drug Contraindication: N/A - Med Ordered
--- NOTE | 2022-11-19 20:21 | PC.NURSE ---
Attempted to call report at 20:22, RN was busy, US stated she will call back for report
[2022-11-19] MEDS: Enoxaparin Sodium 30 MG/0.3 ML SYRINGE SUBCUT (20:35)
[2022-11-19] MEDS: bisacodyL 10 MG SUPP.RECT PR (20:35)
[2022-11-19 20:47] LABS: Lactic Acid 1.2 mmol/L (0.5-2.0)
--- NOTE | 2022-11-19 21:26 | PC.NURSE ---
Attempted to call report at [phone], no answer. Per 30-minute policy, pt will be transported to the floor.
[2022-11-19] MEDS: Albumin Human 25 % 100 ML 133.33 ML IV (21:40)
[2022-11-20] MEDS: Albumin Human 25 % 100 ML 133.33 ML IV (00:13)
[2022-11-20 00:24] VITALS: BP 126/58; PULSE 88
[2022-11-20] MEDS: 0.9 % Sodium Chloride Flush 3 ML SYRINGE IVFLUSH ×2 (01:07→09:11)
[2022-11-20] MEDS: cefTRIAXone sodium 1 GM in 0.9 % Sodium Chloride 50 ML IV (01:07)
[2022-11-20 04:00] VITALS: BP 135/75; PULSE 90; RESP 18; TEMP 36.4; O2SAT 93
[2022-11-20 06:49] LABS: Alanine Aminotransferase 6 U/L (0-31); Albumin Level 3.3 g/dL (3.5-5.0); Alkaline Phosphatase 37 U/L (39-117); Anion Gap 10 (12-20); Aspartate Amino Transferase 17 U/L (5-31); Bilirubin Total 0.2 mg/dL (0.0-1.0); Blood Urea Nitrogen 16 mg/dL (9-16); Calcium 8.3 mg/dL (8.4-10.2); Carbon Dioxide 25 mmol/L (22-29); Chloride 111 mmol/L (96-108); Creatinine Clr Calc Pharmacy 33.8; Estimated Glomerular Filt Rate 58; Glucose Random 80 mg/dL (60-115); Potassium 3.7 mmol/L (3.3-5.1); Sodium 142 mmol/L (135-145); Total Protein 6.1 g/dL (6.5-8.0)
[2022-11-20 07:09] VITALS: BP 94/60; PULSE 85; RESP 20; TEMP 36.4; O2SAT 99
[2022-11-20 08:42] LABS: Hematocrit 23.4 % (37.0-47.0); Hemoglobin 7.9 g/dl (12.0-16.0); Mean Corpuscular HGB Conc 33.8 g/dl (31.0-35.0); Mean Corpuscular Hemoglobin 33.8 pg (27.0-33.0); Platelet Count 139 X10*3/uL (160-400); Red Blood Count 2.34 X10*6/uL (4.20-5.50); Red Cell Distribution Width 14.6 % (11.0-16.0); White Blood Count 6.6 X10*3/uL (4.8-10.8)
[2022-11-20] MEDS: Folic Acid 1 MG TABLET PO (09:09)
[2022-11-20] MEDS: Aspirin Enteric Coated 81 MG TABLET.DR PO (09:09)
[2022-11-20] MEDS: Levothyroxine Sodium 50 MCG TABLET PO (09:09)
[2022-11-20] MEDS: Divalproex Sodium Sprinkles 125 MG CAP.DR.SPR 375 MG PO ×2 (09:09→20:51)
[2022-11-20] MEDS: vancomycin HCL 1,250 MG in 0.9 % Sodium Chloride 250 ML 166.67 MG IV (12:04)
--- NOTE | 2022-11-20 12:08 | MHC.CM.PN ---
pt lives with dgter she as a cpcap at home will need am,b home pt is [facility] per dgter dc plan home resume same
--- NOTE | 2022-11-20 13:43 | P.PNIM_ITS ---
Subjective Subjective Date of Service: 11/20/22 Interval History: seen and examined this morning follow up for UTI, bacteremia history obtained from daughter at bedside with assistance of territory outside sales manager - patient has h/o advanced dementia, mostly nonverbal at baseline, frequently sleeps during the day and requries assistance for ADLs pt sleepy this am Physical Exam 2 Vital Signs: Vital Signs: Last Vital Signs Temp 97.5 F 11/20/22 07:09 Pulse 85 11/20/22 07:09 Resp 20 11/20/22 07:09 BP 94/60 11/20/22 07:09 Pulse Ox 99 11/20/22 07:09 O2 Del Method High Flow Nasal C annula 11/20/22 07:09 O2 Flow Rate 3 11/20/22 07:09 Oxygen Flow Rate 2 11/19/22 14:31 BMI result Body Mass Index 22.6 Const: General: lethargic Orientation/consciousness: lethargic Resp: Effort & Inspection: normal respiratory effort, no respiratory distress and no use of accessory muscles Cardio: Rate: regular rate GI: Inspection: No distended Neuro: Other: unable to assess Extrem: General: Yes no pedal edema Objective Data Active Medications Acetaminophen (Acetaminophen 325 Mg Tablet) 650 mg PO Q6H PRN PRN Reason: Pain, Mild (Pain Scale 1-3) Albuterol Sulfate (Albuterol Sulfate (0.083%) 2.5 Mg/3 Ml Vial.Neb) 1.25 mg INHALE TID PRN PRN Reason: shortness of breath or wheezing Aspirin (Aspirin Enteric Coated 81 Mg Tablet.) 81 mg PO DAILY [facility] Last Admin: 11/20/22 09:09 Dose: 81 mg Documented By: MOISÉS Divalproex Sodium (Divalproex Sodium Sprinkles 125 Mg Cap) 375 mg PO BID [facility] Last Admin: 11/20/22 09:09 Dose: 375 mg Documented By: MOISÉS Enoxaparin Sodium (Enoxaparin Sodium 30 Mg/0.3 Ml Syringe) 30 mg SUBCUT Q24H [facility] Last Admin: 11/19/22 20:35 Dose: 30 mg Documented By: MAGDALENO Folic Acid (Folic Acid 1 Mg Tablet) 1 mg PO DAILY [facility] Last Admin: 11/20/22 09:09 Dose: 1 mg Documented By: MOISÉS Ceftriaxone Sodium 2 gm/ (Sodium Chloride) 50 mls @ 100 mls/hr IV Q24H [facility] Levothyroxine Sodium (Levothyroxine Sodium 50 Mcg Tablet) 50 mcg PO DAILY@0600 [facility] Last Admin: 11/20/22 09:09 Dose: 50 mcg Documented By: MOISÉS Melatonin (Melatonin 3 Mg Tablet) 6 mg PO BEDTIME PRN PRN Reason: Insomnia Nystatin (Nystatin Cream 15 Gm Tube) 1 appl TOPICAL BID [facility]; Protocol Ondansetron HCl (Ondansetron Hcl 4 Mg/2 Ml Vial) 4 mg IVPUSH Q8H PRN PRN Reason: Nausea and Vomiting Sodium Chloride (0.9 % Sodium Chloride Flush 3 Ml Syringe) 3 ml IVFLUSH QSHIFT [facility] Last Admin: 11/20/22 09:11 Dose: 3 ml Documented By: MOISÉS Labs 11/20/22 07:52 11/20/22 05:53 Labs: Laboratory Results - last 24 hr 11/19/22 11/19/22 11/19/22 14:29 15:52 20:25 MCV 101.1 H MCH 34.2 H MCHC 33.8 RDW 14.4 Plt Count 147 L MPV 9.3 L Immature Gran % (Auto) 0.4 Neut % (Auto) 72.4 Lymph % (Auto) 15.2 L [place] % (Auto) 11.8 H Eos % (Auto) 0.1 Baso % (Auto) 0.1 Lymph # (Auto) 1.7 [place] # (Auto) 1.3 H Eos # (Auto) 0.0 Baso # (Auto) 0.0 Abs Immat Gran (auto) 0.04 H Absolute Neuts (auto) 7.9 Absolute Nucleated RBC 0.000 Nucleated RBC % (auto) 0.0 Anion Gap 13 Estim Creat Clear Calc 24.6 Estimated GFR 41 Random Glucose 77 Lactic Acid 1.7 1.2 Calcium 8.8 Total Bilirubin 0.1 Direct Bilirubin < 0.2 AST 19 ALT 10 Alkaline Phosphatase 48 B-Natriuretic Peptide 77 Total Protein 7.0 Albumin 3.1 L Lipase 27 Urine Color Yellow Urine Appearance Turbid Urine pH 5.5 Ur Specific [place] 1.015 Urine Protein 100 (2+) H Urine Glucose (UA) Negative Urine Ketones Negative Urine Blood Large (3+) H Urine Nitrite Positive H Ur Leukocyte Esterase Large (3+) H Urine RBC 11-20 H Urine WBC >50 H Ur Squamous Epith Cells >20 Urine Bacteria 4+ Hyaline Casts 3-5 Influenza Type A (PCR) NEGATIVE Influenza Type B (PCR) NEGATIVE RSV RNA Qual (PCR) NEGATIVE SARS-CoV-2 RNA (RT-PCR) NEGATIVE 11/20/22 11/20/22 05:53 07:52 MCV 100.0 H MCH 33.8 H MCHC 33.8 RDW 14.6 Plt Count 139 L MPV 10.0 Immature Gran % (Auto) Neut % (Auto) Lymph % (Auto) [place] % (Auto) Eos % (Auto) Baso % (Auto) Lymph # (Auto) [place] # (Auto) Eos # (Auto) Baso # (Auto) Abs Immat Gran (auto) Absolute Neuts (auto) Absolute Nucleated RBC 0.000 Nucleated RBC % (auto) 0.0 Anion Gap 10 L Estim Creat Clear Calc 33.8 Estimated GFR 58 Random Glucose 80 Lactic Acid Calcium 8.3 L Total Bilirubin 0.2 Direct Bilirubin AST 17 ALT 6 Alkaline Phosphatase 37 L B-Natriuretic Peptide Total Protein 6.1 L Albumin 3.3 L Lipase Urine Color Urine Appearance Urine pH Ur Specific [place] Urine Protein Urine Glucose (UA) Urine Ketones Urine Blood Urine Nitrite Ur Leukocyte Esterase Urine RBC Urine WBC Ur Squamous Epith Cells Urine Bacteria Hyaline Casts Influenza Type A (PCR) Influenza Type B (PCR) RSV RNA Qual (PCR) SARS-CoV-2 RNA (RT-PCR) Microbiology Microbiology Results: Microbiology 11/19/22 15:29 Blood Culture - Preliminary Blood - Venous Prelim: GNR Gram Stain only Prelim: GPC Gram Stain only 11/19/22 Unknown Urine Culture - Preliminary Urine Catheterized - Straight Catheter Gram negative barbara Assessment and Plan (1) Acute UTI: Status: Acute (2) Bacteremia: Status: Acute Plan This is a 82-year-old female with pertinent history of hypothyroidism, seizure disorder, advanced dementia who was brought to the emergency department for evaluation of hypotension. Sepsis due to acute UTI/bacteremia urine culture growing GNR blood cultures growing GNR, GPC continue IV ceftriaxone, will give empiric dose of vanco to cover GPC follow final blood cultures results repeat blood cultures pending Acute metabolic encephalopathy r/t above with underlying advanced dementia Will keep patient NPO until mentation improves acute on chronic anemia likely dilutional no evidence of acute blood loss follow CBC thrombocytopenia likely r/t sepisis follow CBC Seizure disorder continue divalproex Unspecified dementia baseline primarily nonveral, dependent for all ADLs Maintain sleep-wake cycle hypothyroid continue synthroid DVT prophylaxis: Lovenox Full code Requires ongoing admission for IV antibiotics, close monitoring Time Spent With Patient Time: Total time managing care of this patient today ____ minutes. Quality Stroke Does the patient have a stroke diagnosis?: No VTE Prior VTE?: No VTE Risk Level:: Medical - moderate - high VTE Device Contraindication: Treatment Not Indicated VTE Drug Contraindication: N/A - Med Ordered
[2022-11-20] MEDS: Nystatin Cream 15 GM TUBE 1 APPL TOPICAL ×2 (14:02→20:55)
[2022-11-20 15:14] VITALS: BP 120/64; PULSE 72; RESP 20; TEMP 36.1; O2SAT 94
--- NOTE | 2022-11-20 15:39 | MHC.SL.SWA ---
Speech Pathologist Impression: Risk of aspiration, oropharyngeal dysphagia Risk of Aspiration Due to: Lethargy Neurological Condition Reduced Cognition Dysphasia Diet Status: UPGRADE from NPO, start on NDD1/thin Liquid Consistency and Strategies for Safe Swallow: Liquid Intake Recommendation: Thin Liquid Intake Strategies: Small Sips Solid Food Consistency: Dietary Recommendations: Pureed (NDD1) Additional Modifications to Solid Foods: Recommend UPGRADE from NPO, start on PUREED (NDD1) diet with THIN liquids (controlled sips), pills CRUSHED in PUREE. Pt requires TOTAL 1:1 ASSISTANCE, pt tends to bite down and breaks plastic cutlery- Needs metal spoons. Ensure STRICT aspiration precautions- oral care before first meal and after each subsequent meal, upright 90 degree position during PO intake and for at least 30 minutes afterwards, present small bites, ensure oral cavity is cleared before giving next bite, present empty spoon as needed to elicit dry swallow between bites. Liquids via spoon or straw- pinch straw to control bolus size and ensure individual sips. Pt must be awake and alert for presentation of PO. Otherwise, tray to be held if pt is lethargic, not attending to meal, or presenting with any overt s/s of aspiration. Notified team (PA, RN, RD) via [place] Message. HYDROMETER TESTER will continue to follow. Oral Medication Intake: Crushed with Puree Please contact the pharmacy regarding appropriate crushable or liquid drug formulations that are available whenever modified delivery is recommended. Compensatory Strategies and Precautions to be Taken for Safe Swallow: Sitting Upright (90 deg) Double Swallow Small Bites and Sips Rate of Ingestion Change Oral Check Avoid Specific Foods Supervision While Eating and Drinking for Safe Swallow: Total Assistance (1:1) Foods to Avoid: Mixed textures Swallowing Recommended Treatments: Compens. Strategy Educat. Recommendation for Speech: Inpatient Speech Therapy Automatic [place] Clinican/Clinical Fellow: No Supervisory Statement: I have reviewed and agree with the student/clinical fellow's documentation: N/A Speech Language Pathologist: Shwetha Amor M.A., CCC-HYDROMETER TESTER
[2022-11-20 16:23] LABS: Hemoglobin 9.9 g/dl (12.0-16.0)
[2022-11-20] MEDS: Lactated Ringers 1,000 ML 100 ML IVCONT (16:41)
[2022-11-20 20:10] VITALS: BP 122/81; PULSE 96; RESP 20; TEMP 36.3; O2SAT 96
[2022-11-20] MEDS: Enoxaparin Sodium 30 MG/0.3 ML SYRINGE SUBCUT (20:51)
[2022-11-20] MEDS: cefTRIAXone sodium 2 GM in 0.9 % Sodium Chloride 50 ML IV (22:34)
[2022-11-21] MEDS: Acetaminophen 325 MG TABLET 650 MG PO ×3 (03:03→21:36)
[2022-11-21] MEDS: Lactated Ringers 1,000 ML 100 ML IVCONT (03:09)
[2022-11-21 04:00] VITALS: BP 147/69; PULSE 72; RESP 16; TEMP 36; O2SAT 95
[2022-11-21] MEDS: Levothyroxine Sodium 50 MCG TABLET PO (07:10)
[2022-11-21 08:00] VITALS: BP 123/69; PULSE 75; RESP 18; TEMP 36.3; O2SAT 93
[2022-11-21 08:45] LABS: Hematocrit 26.9 % (37.0-47.0); Hemoglobin 8.8 g/dl (12.0-16.0); Mean Corpuscular HGB Conc 32.7 g/dl (31.0-35.0); Mean Corpuscular Volume 100.7 fL (80.0-98.0); Mean Platelet Volume 9.8 fL (9.4-12.3); Platelet Count 174 X10*3/uL (160-400); Red Blood Count 2.67 X10*6/uL (4.20-5.50); Red Cell Distribution Width 15.3 % (11.0-16.0); White Blood Count 7.6 X10*3/uL (4.8-10.8)
[2022-11-21 09:14] LABS: Anion Gap 14 (12-20); Blood Urea Nitrogen 14 mg/dL (9-16); Calcium 9.2 mg/dL (8.4-10.2); Carbon Dioxide 23 mmol/L (22-29); Chloride 110 mmol/L (96-108); Creatinine Clr Calc Pharmacy 31.5; Estimated Glomerular Filt Rate 54; Glucose Random 96 mg/dL (60-115); Potassium 3.8 mmol/L (3.3-5.1); Sodium 143 mmol/L (135-145)
[2022-11-21] MEDS: Folic Acid 1 MG TABLET PO (09:17)
[2022-11-21] MEDS: Aspirin Enteric Coated 81 MG TABLET.DR PO (09:17)
[2022-11-21] MEDS: Divalproex Sodium Sprinkles 125 MG CAP.DR.SPR 375 MG PO ×2 (09:17→21:23)
[2022-11-21] MEDS: Nystatin Cream 15 GM TUBE 1 APPL TOPICAL ×2 (09:18→21:27)
[2022-11-21 10:19] VITALS: O2SAT 98
[2022-11-21] MEDS: bisacodyL 10 MG SUPP.RECT PR (13:51)
[2022-11-21 15:41] VITALS: BP 171/72; PULSE 100; RESP 20; TEMP 36.4; O2SAT 97
[2022-11-21] MEDS: 0.9 % Sodium Chloride Flush 3 ML SYRINGE IVFLUSH ×2 (16:38→23:53)
[2022-11-21 16:43] VITALS: BP 135/79; PULSE 84
--- NOTE | 2022-11-21 17:34 | HO.PM.IMPN ---
Subjective Subjective Date of Service: 11/21/22 Interval History: seen and examined this morning nonverbal at baseline - according to her grandson at bedside she appears to be at her baseline unable to obtain ROS Physical Exam Vital Signs: Vital Signs: Last Vital Signs Temp 97.5 F 11/21/22 15:41 Pulse 84 11/21/22 16:43 Resp 20 11/21/22 15:41 BP 135/79 11/21/22 16:43 Pulse Ox 97 11/21/22 15:41 O2 Del Method Room Air 11/21/22 15:41 O2 Flow Rate 2 11/21/22 08:00 Oxygen Flow Rate 2 11/19/22 14:31 BMI result Body Mass Index 22.6 Const: General: alert and awake Nutritional Appearance: average body habitus Resp: Effort & Inspection: normal respiratory effort, no respiratory distress and no use of accessory muscles Cardio: Rate: regular rate GI: Inspection: No distended Palpation (GI): Soft to palpation Neuro: Other: unable to assess Extrem: General: Yes no pedal edema Objective Data Active Medications Acetaminophen (Acetaminophen 325 Mg Tablet) 650 mg PO Q6H PRN PRN Reason: Pain, Mild (Pain Scale 1-3) Last Admin: 11/21/22 09:21 Dose: 650 mg Documented By: NOLAN Albuterol Sulfate (Albuterol Sulfate (0.083%) 2.5 Mg/3 Ml Vial.Neb) 1.25 mg INHALE TID PRN PRN Reason: shortness of breath or wheezing Aspirin (Aspirin Enteric Coated 81 Mg Tablet.) 81 mg PO DAILY [facility] Last Admin: 11/21/22 09:17 Dose: 81 mg Documented By: NOLAN Bisacodyl (Bisacodyl 10 Mg Supp.Rect) 10 mg VT DAILY PRN PRN Reason: Constipation Last Admin: 11/21/22 13:51 Dose: 10 mg Documented By: NOLAN Divalproex Sodium (Divalproex Sodium Sprinkles 125 Mg Cap.) 375 mg PO BID [facility] Last Admin: 11/21/22 09:17 Dose: 375 mg Documented By: NOLAN Enoxaparin Sodium (Enoxaparin Sodium 40 Mg/0.4 Ml Syringe) 40 mg SUBCUT Q24H [facility] Folic Acid (Folic Acid 1 Mg Tablet) 1 mg PO DAILY [facility] Last Admin: 11/21/22 09:17 Dose: 1 mg Documented By: NOLAN Ceftriaxone Sodium 2 gm/ (Sodium Chloride) 50 mls @ 100 mls/hr IV Q24H [facility] Last Infusion: 11/20/22 23:05 Dose: Infused Documented By: ASHLEY Levothyroxine Sodium (Levothyroxine Sodium 50 Mcg Tablet) 50 mcg PO DAILY@0600 [facility] Last Admin: 11/21/22 07:10 Dose: 50 mcg Documented By: JAYCE Melatonin (Melatonin 3 Mg Tablet) 6 mg PO BEDTIME PRN PRN Reason: Insomnia Nystatin (Nystatin Cream 15 Gm Tube) 1 appl TOPICAL BID [facility]; Protocol Last Admin: 11/21/22 09:18 Dose: 1 appl Documented By: NOLAN Ondansetron HCl (Ondansetron Hcl 4 Mg/2 Ml Vial) 4 mg IVPUSH Q8H PRN PRN Reason: Nausea and Vomiting Sodium Chloride (0.9 % Sodium Chloride Flush 3 Ml Syringe) 3 ml IVFLUSH QSHIFT [facility] Last Admin: 11/21/22 16:38 Dose: 3 ml Documented By: BEIT Labs 11/21/22 08:07 11/21/22 08:07 Labs: Laboratory Results - last 24 hr 11/21/22 08:07 MCV 100.7 H MCH 33.0 MCHC 32.7 RDW 15.3 Plt Count 174 D MPV 9.8 Absolute Nucleated RBC 0.000 Nucleated RBC % (auto) 0.0 Anion Gap 14 Estim Creat Clear Calc 31.5 Estimated GFR 54 Random Glucose 96 Calcium 9.2 D Microbiology Microbiology Results: Microbiology 11/19/22 15:29 Blood Culture - Preliminary Blood - Venous Gram negative barbara Coag negative Staphylococcus 11/19/22 Unknown Urine Culture - Final Urine Catheterized - Straight Catheter Escherichia coli 11/19/22 15:52 Blood Culture - Preliminary Blood - Venous No growth after 24 hours. Assessment and Plan (1) Bacteremia: Status: Acute (2) Acute UTI: Status: Acute Plan This is a 82-year-old female with pertinent history of hypothyroidism, seizure disorder, advanced dementia who was brought to the emergency department for evaluation of hypotension. Sepsis due to acute UTI/bacteremia urine culture growing GNR blood cultures growing GNR, coag negative staph continue IV ceftriaxone follow final blood cultures results repeat blood cultures pending ID consult pending Acute metabolic encephalopathy r/t above with underlying advanced dementia seen by speech, rec purred diet with thin liquids acute on chronic anemia likely dilutional no recent baseline no evidence of acute blood loss outpatient follow up thrombocytopenia likely r/t sepisis follow CBC Seizure disorder continue divalproex Unspecified dementia baseline primarily nonverbal, dependent for all ADLs Maintain sleep-wake cycle hypothyroid continue synthroid DVT prophylaxis: Lovenox Full code attending dr. laureano Requires ongoing admission for IV antibiotics, close monitoring, specialist evaluation Time Spent With Patient Time: Total time managing care of this patient today ____ minutes. Quality Stroke Does the patient have a stroke diagnosis?: No VTE Prior VTE?: No VTE Risk Level:: Medical - moderate - high VTE Device Contraindication: Treatment Not Indicated VTE Drug Contraindication: N/A - Med Ordered
[2022-11-21 19:09] VITALS: BP 150/79; PULSE 93; RESP 18; TEMP 35.8; O2SAT 97
[2022-11-21] MEDS: Enoxaparin Sodium 40 MG/0.4 ML SYRINGE SUBCUT (21:25)
[2022-11-21] MEDS: cefTRIAXone sodium 2 GM in 0.9 % Sodium Chloride 50 ML IV (21:37)
[2022-11-22 03:19] VITALS: BP 135/63; PULSE 63; RESP 16; TEMP 36.9; O2SAT 98
[2022-11-22] MEDS: Acetaminophen 325 MG TABLET 650 MG PO (06:07)
[2022-11-22] MEDS: Levothyroxine Sodium 50 MCG TABLET PO (06:07)
--- NOTE | 2022-11-22 06:08 | PC.NURSE ---
Nonverbal patient seems to be in pain, which seems to be relieved by tylenol
[2022-11-22 07:36] VITALS: BP 106/58; PULSE 78; RESP 16; TEMP 36; O2SAT 94
[2022-11-22] MEDS: Aspirin Enteric Coated 81 MG TABLET.DR PO (09:12)
[2022-11-22] MEDS: Divalproex Sodium Sprinkles 125 MG CAP.DR.SPR 375 MG PO ×2 (09:12→21:25)
[2022-11-22] MEDS: Folic Acid 1 MG TABLET PO (09:13)
[2022-11-22] MEDS: Nystatin Cream 15 GM TUBE 1 APPL TOPICAL ×2 (09:13→21:42)
[2022-11-22] MEDS: 0.9 % Sodium Chloride Flush 3 ML SYRINGE IVFLUSH ×2 (09:13→17:37)
[2022-11-22 16:00] VITALS: BP 110/65; PULSE 86; RESP 16; TEMP 35.7; O2SAT 98
--- NOTE | 2022-11-22 17:04 | HO.PM.IMPN ---
Subjective Subjective Date of Service: 11/22/22 Interval History: seen and examined this morning history obtained with assistance from granddaughter at the bedside pt seemed uncomfortable overnight and this morning as well pt remains at baseline - nonverbal unable to provide history, ROS Physical Exam Vital Signs: Vital Signs: Last Vital Signs Temp 96.2 F L 11/22/22 16:00 Pulse 86 11/22/22 16:00 Resp 16 11/22/22 16:00 BP 110/65 11/22/22 16:00 Pulse Ox 98 11/22/22 16:00 O2 Del Method Room Air 11/22/22 16:00 O2 Flow Rate 2 11/22/22 07:36 Oxygen Flow Rate 2 11/19/22 14:31 BMI result Body Mass Index 22.6 Const: General: alert and awake Nutritional Appearance: average body habitus Resp: Effort & Inspection: normal respiratory effort, no respiratory distress and no use of accessory muscles Cardio: Rate: regular rate GI: Inspection: No distended Palpation (GI): Soft to palpation Neuro: Other: unable to assess Extrem: General: Yes no pedal edema Objective Data Active Medications Acetaminophen (Acetaminophen 325 Mg Tablet) 650 mg PO Q6H PRN PRN Reason: Pain, Mild (Pain Scale 1-3) Last Admin: 11/22/22 06:07 Dose: 650 mg Documented By: JAYCE Albuterol Sulfate (Albuterol Sulfate (0.083%) 2.5 Mg/3 Ml Vial.Neb) 1.25 mg INHALE TID PRN PRN Reason: shortness of breath or wheezing Aspirin (Aspirin Enteric Coated 81 Mg Tablet.) 81 mg PO DAILY [facility] Last Admin: 11/22/22 09:12 Dose: 81 mg Documented By: NOLAN Bisacodyl (Bisacodyl 10 Mg Supp.Rect) 10 mg [place] DAILY PRN PRN Reason: Constipation Last Admin: 11/21/22 13:51 Dose: 10 mg Documented By: NOLAN Divalproex Sodium (Divalproex Sodium Sprinkles 125 Mg Cap.) 375 mg PO BID [facility] Last Admin: 11/22/22 09:12 Dose: 375 mg Documented By: NOLAN Enoxaparin Sodium (Enoxaparin Sodium 40 Mg/0.4 Ml Syringe) 40 mg SUBCUT Q24H [facility] Last Admin: 11/21/22 21:25 Dose: 40 mg Documented By: TABITHA Folic Acid (Folic Acid 1 Mg Tablet) 1 mg PO DAILY [facility] Last Admin: 11/22/22 09:13 Dose: 1 mg Documented By: NOLAN Ceftriaxone Sodium 2 gm/ (Sodium Chloride) 50 mls @ 100 mls/hr IV Q24H [facility] Last Infusion: 11/21/22 22:10 Dose: Infused Documented By: TABITHA Levothyroxine Sodium (Levothyroxine Sodium 50 Mcg Tablet) 50 mcg PO DAILY@0600 [facility] Last Admin: 11/22/22 06:07 Dose: 50 mcg Documented By: JAYCE Melatonin (Melatonin 3 Mg Tablet) 6 mg PO BEDTIME PRN PRN Reason: Insomnia Nystatin (Nystatin Cream 15 Gm Tube) 1 appl TOPICAL BID [facility]; Protocol Last Admin: 11/22/22 09:13 Dose: 1 appl Documented By: NOLAN Ondansetron HCl (Ondansetron Hcl 4 Mg/2 Ml Vial) 4 mg IVPUSH Q8H PRN PRN Reason: Nausea and Vomiting Polyethylene Glycol (Polyethylene Glycol 3350 17 Gm Powd.Pack) 17 gm PO DAILY [facility] Sodium Chloride (0.9 % Sodium Chloride Flush 3 Ml Syringe) 3 ml IVFLUSH QSHIFT [facility] Last Admin: 11/22/22 09:13 Dose: 3 ml Documented By: NOLAN Labs 11/21/22 08:07 11/21/22 08:07 Microbiology Microbiology Results: Microbiology 11/19/22 15:29 Blood Culture - Final Blood - Venous Escherichia coli Coag negative Staphylococcus 11/20/22 15:55 Blood Culture - Preliminary Blood - Venous No growth after 24 hours. 11/20/22 15:55 Blood Culture - Preliminary Blood - Venous No growth after 24 hours. 11/19/22 15:52 Blood Culture - Preliminary Blood - Venous No growth after 48 hours. Assessment and Plan (1) Bacteremia: Status: Acute (2) Acute UTI: Status: Acute (3) Right kidney stone: Status: Acute Plan This is a 82-year-old female with pertinent history of hypothyroidism, seizure disorder, advanced dementia who was brought to the emergency department for evaluation of hypotension. Sepsis due to acute UTI/bacteremia urine culture growing e.coli blood cultures growing e.coli, coag negative staph continue IV ceftriaxone CT scan showing stone lodged in right ureter - will consult urology - will keep npo at midnight in preparation for possible procedure ID consult pending constipation seen on CT had large BM yesterday but persistent stool burden on CT enema bowel regimen compression fractures CT showing compression fractures of L1, L4 - age indeterminate conservative management for now discuss with family Acute metabolic encephalopathy r/t above with underlying advanced dementia. pt back to baseline per family non-verbal and dependent for ADLs seen by speech, rec purred diet with thin liquids acute on chronic anemia likely dilutional no recent baseline no evidence of acute blood loss H/H stable thrombocytopenia likely r/t sepisis resolved Seizure disorder continue divalproex Unspecified dementia baseline primarily nonverbal, dependent for all ADLs Maintain sleep-wake cycle hypothyroid continue synthroid DVT prophylaxis: Lovenox Full code attending dr. adam Requires ongoing admission for IV antibiotics, close monitoring, specialist evaluation Time Spent With Patient Time: Total time managing care of this patient today ____ minutes. Quality Stroke Does the patient have a stroke diagnosis?: No VTE Prior VTE?: No VTE Risk Level:: Medical - moderate - high VTE Device Contraindication: Treatment Not Indicated VTE Drug Contraindication: N/A - Med Ordered
[2022-11-22] MEDS: polyethylene glycoL 3350 17 GM POWD.PACK PO (17:37)
[2022-11-22 19:09] VITALS: BP 105/65; PULSE 69; RESP 16; TEMP 35.7; O2SAT 96
[2022-11-22] MEDS: Enoxaparin Sodium 40 MG/0.4 ML SYRINGE SUBCUT (21:24)
[2022-11-22] MEDS: Docusate Sodium 100 MG CAPSULE PO (21:25)
[2022-11-22] MEDS: cefTRIAXone sodium 2 GM in 0.9 % Sodium Chloride 50 ML IV (21:26)
--- NOTE | 2022-11-22 23:18 | PC.NURSE ---
soap suds enema was administered,small amt of brown liquid as a result
[2022-11-23] VITALS (10 sets, daily range): BP systolic 112–140; BP diastolic 58–96; PULSE 72–88; RESP 14–19; TEMP 36.1–36.6; O2SAT 94–99
[2022-11-23] MEDS: 0.9 % Sodium Chloride Flush 3 ML SYRINGE IVFLUSH ×4 (00:01→22:08)
[2022-11-23] MEDS: Nystatin Cream 15 GM TUBE 1 APPL TOPICAL ×2 (09:14→22:24)
--- NOTE | 2022-11-23 10:08 | MHC.SLORD ---
Speech Language Pathology Order Status: Per chart review, pt NPO in preparation for possible procedure. Dysphagia tx deferred.
--- NOTE | 2022-11-23 12:08 | HO.PM.IMPN ---
Subjective Subjective Date of Service: 11/23/22 Interval History: seen and examined this morning pt seemed uncomfortable overnight and this morning as well pt remains at baseline - nonverbal unable to provide history, ROS Physical Exam Vital Signs: Vital Signs: Last Vital Signs Temp 97.0 F 11/23/22 08:00 Pulse 88 11/23/22 08:00 Resp 18 11/23/22 08:00 BP 133/96 H 11/23/22 08:00 Pulse Ox 94 11/23/22 08:00 O2 Del Method Room Air 11/23/22 08:00 O2 Flow Rate 2 11/22/22 07:36 Oxygen Flow Rate 2 11/19/22 14:31 BMI result Body Mass Index 22.6 Appearing in no acute distress lung sounds are clear to auscultation heart regular rate rhythm, clear S1, S2 positive bowel sounds, abdomen is soft, nontender neuro patient is alert x3, no focal deficits Objective Data Active Medications Acetaminophen (Acetaminophen 325 Mg Tablet) 650 mg PO Q6H PRN PRN Reason: Pain, Mild (Pain Scale 1-3) Last Admin: 11/22/22 06:07 Dose: 650 mg Documented By: JAYCE Albuterol Sulfate (Albuterol Sulfate (0.083%) 2.5 Mg/3 Ml Vial.Neb) 1.25 mg INHALE TID PRN PRN Reason: shortness of breath or wheezing Aspirin (Aspirin Enteric Coated 81 Mg Tablet.Dr) 81 mg PO DAILY [facility] Last Admin: 11/23/22 09:13 Dose: Not Given Documented By: EDU Non-Admin Reason: NPO Bisacodyl (Bisacodyl 10 Mg Supp.Rect) 10 mg [place] DAILY PRN PRN Reason: Constipation Last Admin: 11/21/22 13:51 Dose: 10 mg Documented By: NOLAN Divalproex Sodium (Divalproex Sodium Sprinkles 125 Mg Cap.) 375 mg PO BID [facility] Last Admin: 11/23/22 09:13 Dose: Not Given Documented By: EDU Non-Admin Reason: NPO Docusate Sodium (Docusate Sodium 100 Mg Capsule) 100 mg PO BEDTIME [facility] Last Admin: 11/22/22 21:25 Dose: 100 mg Documented By: TABITHA Enoxaparin Sodium (Enoxaparin Sodium 40 Mg/0.4 Ml Syringe) 40 mg SUBCUT Q24H [facility] Last Admin: 11/22/22 21:24 Dose: 40 mg Documented By: TABITHA Folic Acid (Folic Acid 1 Mg Tablet) 1 mg PO DAILY [facility] Last Admin: 11/23/22 09:13 Dose: Not Given Documented By: EDU Non-Admin Reason: NPO Ceftriaxone Sodium 2 gm/ (Sodium Chloride) 50 mls @ 100 mls/hr IV Q24H [facility] Last Infusion: 11/22/22 22:05 Dose: Infused Documented By: TABITHA Levothyroxine Sodium (Levothyroxine Sodium 50 Mcg Tablet) 50 mcg PO DAILY@0600 [facility] Last Admin: 11/23/22 05:07 Dose: Not Given Documented By: CATALINA Non-Admin Reason: NPO Melatonin (Melatonin 3 Mg Tablet) 6 mg PO BEDTIME PRN PRN Reason: Insomnia Nystatin (Nystatin Cream 15 Gm Tube) 1 appl TOPICAL BID [facility]; Protocol Last Admin: 11/23/22 09:14 Dose: 1 appl Documented By: EDU Ondansetron HCl (Ondansetron Hcl 4 Mg/2 Ml Vial) 4 mg IVPUSH Q8H PRN PRN Reason: Nausea and Vomiting Polyethylene Glycol (Polyethylene Glycol 3350 17 Gm Powd.Pack) 17 gm PO DAILY [facility] Last Admin: 11/23/22 09:14 Dose: Not Given Documented By: EDU Non-Admin Reason: NPO Sodium Chloride (0.9 % Sodium Chloride Flush 3 Ml Syringe) 3 ml IVFLUSH QSHIFT [facility] Last Admin: 11/23/22 09:09 Dose: 3 ml Documented By: EDU Labs 11/21/22 08:07 11/21/22 08:07 Microbiology Microbiology Results: Microbiology 11/20/22 15:55 Blood Culture - Preliminary Blood - Venous No growth after 48 hours. 11/20/22 15:55 Blood Culture - Preliminary Blood - Venous No growth after 48 hours. 11/19/22 15:29 Blood Culture - Final Blood - Venous Escherichia coli Coag negative Staphylococcus Assessment and Plan (1) Bacteremia: Status: Acute (2) Acute UTI: Status: Acute (3) Right kidney stone: Status: Acute Plan This is a 82-year-old female with pertinent history of hypothyroidism, seizure disorder, advanced dementia who was brought to the emergency department for evaluation of hypotension. Sepsis due to acute UTI/bacteremia urine culture growing e.coli blood cultures growing e.coli, coag negative staph continue IV ceftriaxone CT scan showing stone lodged in right ureter> lithotripsy today ID consult pending constipation seen on CT had large BM yesterday but persistent stool burden on CT enema bowel regimen compression fractures CT showing compression fractures of L1, L4 - age indeterminate conservative management for now discuss with family Acute metabolic encephalopathy r/t above with underlying advanced dementia. pt back to baseline per family non-verbal and dependent for ADLs seen by speech, rec purred diet with thin liquids acute on chronic anemia likely dilutional no recent baseline no evidence of acute blood loss H/H stable thrombocytopenia likely r/t sepisis resolved Seizure disorder continue divalproex Unspecified dementia baseline primarily nonverbal, dependent for all ADLs Maintain sleep-wake cycle hypothyroid continue synthroid DVT prophylaxis: Lovenox Full code attending dr. Ballard Requires ongoing admission for IV antibiotics, close monitoring, specialist evaluation Time Spent With Patient Time: Total time managing care of this patient today ____ minutes. Quality Stroke Does the patient have a stroke diagnosis?: No VTE Prior VTE?: No VTE Risk Level:: Medical - moderate - high VTE Device Contraindication: Treatment Not Indicated VTE Drug Contraindication: N/A - Med Ordered
--- NOTE | 2022-11-23 16:01 | W.PM.IDCN ---
History of Present Illness Data of Consult Service Date: 11/23/22 Requesting physician: Sussy Burnette Primary Care Provider: Unknown Physician HPI Reason for consult: hypotension,sepsis concern She presents with weakness after found VNA SBP 70s comes to ER. She had recent treatment for UTI. She has urine pansensitive E coli. She has right stone lodged in distal right ureter. Review of Systems Review of Systems: Yes Unobtainable due to mental condition PMFSH Past Medical History Medical History Pure hypercholesterolemia Rash Wheelchair bound Urinary incontinence Blurry vision Rib pain Candidal intertrigo Seizures Cataract Unsteady gait LANDY (obstructive sleep apnea) Incontinence Dementia Physical exam, annual Hypothyroidism Family History Family History Father No problems noted. Mother No problems noted. Maternal Grandmother Diabetes Hypertension Family/Other FH: mental illness Family history: reviewed and not pertinent Surgical History Surgical History No pertinent past surgical history Social History Social History Household Members: Family Housing: Apartment Do you presently have visiting nurse or other home services: Yes Alcohol intake: never Patient Tobacco Use Status: Never used Tobacco e-Cigarette/Vaping Use: Never Used Second Hand Smoke Exposure: No service: No Current occupational status: disabled Cognitive needs: Yes Hearing needs: No Vision needs: No Meds Allergies Allergy/AdvReac Type Severity Reaction Status Date / Time No Known Allergies Allergy Verified 06/18/22 14:33 Active Medications: Current Medications Acetaminophen (Acetaminophen 325 Mg Tablet) 650 mg PO Q6H PRN PRN Reason: Pain, Mild (Pain Scale 1-3) Last Admin: 11/22/22 06:07 Dose: 650 mg Albuterol Sulfate (Albuterol Sulfate (0.083%) 2.5 Mg/3 Ml Vial.Neb) 1.25 mg INHALE TID PRN PRN Reason: shortness of breath or wheezing Aspirin (Aspirin Enteric Coated 81 Mg Tablet.) 81 mg PO DAILY [facility] Last Admin: 11/23/22 09:13 Dose: Not Given Bisacodyl (Bisacodyl 10 Mg Supp.Rect) 10 mg [place] DAILY PRN PRN Reason: Constipation Last Admin: 11/21/22 13:51 Dose: 10 mg Divalproex Sodium (Divalproex Sodium Sprinkles 125 Mg ) 375 mg PO BID [facility] Last Admin: 11/23/22 09:13 Dose: Not Given Docusate Sodium (Docusate Sodium 100 Mg Capsule) 100 mg PO BEDTIME [facility] Last Admin: 11/22/22 21:25 Dose: 100 mg Enoxaparin Sodium (Enoxaparin Sodium 40 Mg/0.4 Ml Syringe) 40 mg SUBCUT Q24H [facility] Last Admin: 11/22/22 21:24 Dose: 40 mg Folic Acid (Folic Acid 1 Mg Tablet) 1 mg PO DAILY [facility] Last Admin: 11/23/22 09:13 Dose: Not Given Ceftriaxone Sodium 2 gm/ (Sodium Chloride) 50 mls @ 100 mls/hr IV Q24H [facility] Last Infusion: 11/22/22 22:05 Dose: Infused Levothyroxine Sodium (Levothyroxine Sodium 50 Mcg Tablet) 50 mcg PO DAILY@0600 [facility] Last Admin: 11/23/22 05:07 Dose: Not Given Melatonin (Melatonin 3 Mg Tablet) 6 mg PO BEDTIME PRN PRN Reason: Insomnia Nystatin (Nystatin Cream 15 Gm Tube) 1 appl TOPICAL BID [facility]; Protocol Last Admin: 11/23/22 09:14 Dose: 1 appl Ondansetron HCl (Ondansetron Hcl 4 Mg/2 Ml Vial) 4 mg IVPUSH Q8H PRN PRN Reason: Nausea and Vomiting Polyethylene Glycol (Polyethylene Glycol 3350 17 Gm Powd.Pack) 17 gm PO DAILY [facility] Last Admin: 11/23/22 09:14 Dose: Not Given Sodium Chloride (0.9 % Sodium Chloride Flush 3 Ml Syringe) 3 ml IVFLUSH QSHIFT [facility] Last Admin: 11/23/22 09:09 Dose: 3 ml Physical Exam Vital Signs: Vital Signs: Last Vital Signs Temp 97.0 F 11/23/22 08:00 Pulse 88 11/23/22 08:00 Resp 18 11/23/22 08:00 BP 133/96 H 11/23/22 08:00 Pulse Ox 94 11/23/22 08:00 O2 Del Method Room Air 11/23/22 08:00 O2 Flow Rate 2 11/22/22 07:36 Oxygen Flow Rate 2 11/19/22 14:31 BMI result Body Mass Index 22.6 Const: General: cooperative HEENT: Head: Yes normal to inspection Face and sinus: Yes normal facial exam Mouth: Normal oral and palatal mucosa present Teeth and gingiva: dentition normal Eyes: General: appearance normal, both eyes and all related structures Pupils: Equal, round and reactive pupils present Resp: Effort & Inspection: normal respiratory effort Cardio: Rate: regular rate Rhythm: regular rhythm GI: Palpation (GI): Soft to palpation and nontender : General: Yes no CVA tenderness Back/Spine/Pelvis: Back: no CVA tenderness Skin: General skin exam: no rashes or lesions noted Neuro: General: moves all extremities Cranial nerves: Yes Equal, round and reactive pupils present Extrem: General: Yes normal to inspection Psych: Other: demented female Results Labs 11/21/22 08:07 11/21/22 08:07 Microbiology Microbiology Results: Microbiology 11/20/22 15:55 Blood - Venous Blood Culture - Preliminary No growth after 48 hours. 11/20/22 15:55 Blood - Venous Blood Culture - Preliminary No growth after 48 hours. 11/19/22 15:29 Blood - Venous Blood Culture - Final Escherichia coli Coag negative Staphylococcus 11/19/22 15:52 Blood - Venous Blood Culture - Preliminary No growth after 48 hours. 11/19/22 Unknown Urine Catheterized - Straight Catheter Urine Culture - Final Escherichia coli Assessment and Plan (1) Right kidney stone: Status: Acute (2) Bacteremia: Status: Acute E coli sepsis She has nephrolithiasis with stone lodged in ureter (3) Acute UTI: Status: Acute (4) Septic shock: Status: Acute Plan Would have Urology see patient ?stent or other treatment. Continue Ceftriaxone and po cephalosporin for 14 total days. Time Spent With Patient Time: Total time managing care of this patient today ____ minutes.
[2022-11-23] MEDS: Dextrose 5 % and 0.9 % NaCl 1,000 ML 75 ML IVCONT (17:28)
--- NOTE | 2022-11-23 19:32 | P.CONAN_ITS ---
HPI - Anesthesia Eval Consult details Narrative: Rt. Ureter stone PMFSH Active Problems Active Problems: All Active Problems (Updated 11/22/22 @ 17:11 by BC Jewell) Right kidney stone (Acute) Bacteremia (Acute) Acute UTI (Acute) Septic shock (Acute) Rash (Acute) Pure hypercholesterolemia (Acute) Rash (Acute) Wheelchair bound (Acute) Adult general medical exam (Acute) Urinary incontinence (Acute) Blurry vision (Acute) Rib pain (Acute) Candidal intertrigo (Acute) Seizures (Acute) Cataract (Acute) Unsteady gait (Acute) LANDY (obstructive sleep apnea) (Acute) Incontinence (Acute) Dementia (Acute) Physical exam, annual (Acute) Hypothyroidism (Acute) Scalp irritation (Acute) Past Medical History Medical History Pure hypercholesterolemia Rash Wheelchair bound Urinary incontinence Blurry vision Rib pain Candidal intertrigo Seizures Cataract Unsteady gait LANDY (obstructive sleep apnea) Incontinence Dementia Physical exam, annual Hypothyroidism Family History Family History Father No problems noted. Mother No problems noted. Maternal Grandmother Diabetes Hypertension Family/Other FH: mental illness Family history of problems with anesthesia: No Surgical History Surgical History No pertinent past surgical history History of Problems with Anesthesia: No Social History Social History Household Members: Family Housing: Apartment Do you presently have visiting nurse or other home services: Yes Alcohol intake: never Patient Tobacco Use Status: Never used Tobacco e-Cigarette/Vaping Use: Never Used Second Hand Smoke Exposure: No service: No Current occupational status: disabled Cognitive needs: Yes Hearing needs: No Vision needs: No Meds Allergies Allergy/AdvReac Type Severity Reaction Status Date / Time No Known Allergies Allergy Verified 06/18/22 14:33 Active Medications: Current Medications Acetaminophen (Acetaminophen 325 Mg Tablet) 650 mg PO Q6H PRN PRN Reason: Pain, Mild (Pain Scale 1-3) Last Admin: 11/22/22 06:07 Dose: 650 mg Albuterol Sulfate (Albuterol Sulfate (0.083%) 2.5 Mg/3 Ml Vial.Neb) 1.25 mg INHALE TID PRN PRN Reason: shortness of breath or wheezing Aspirin (Aspirin Enteric Coated 81 Mg Tablet.Dr) 81 mg PO DAILY [facility] Last Admin: 11/23/22 09:13 Dose: Not Given Bisacodyl (Bisacodyl 10 Mg Supp.Rect) 10 mg [place] DAILY PRN PRN Reason: Constipation Last Admin: 11/21/22 13:51 Dose: 10 mg Divalproex Sodium (Divalproex Sodium Sprinkles 125 Mg Cap.Dr.Yue) 375 mg PO BID [facility] Last Admin: 11/23/22 09:13 Dose: Not Given Docusate Sodium (Docusate Sodium 100 Mg Capsule) 100 mg PO BEDTIME [facility] Last Admin: 11/22/22 21:25 Dose: 100 mg Enoxaparin Sodium (Enoxaparin Sodium 40 Mg/0.4 Ml Syringe) 40 mg SUBCUT Q24H [facility] Last Admin: 11/22/22 21:24 Dose: 40 mg Folic Acid (Folic Acid 1 Mg Tablet) 1 mg PO DAILY [facility] Last Admin: 11/23/22 09:13 Dose: Not Given Ceftriaxone Sodium 2 gm/ (Sodium Chloride) 50 mls @ 100 mls/hr IV Q24H [facility] Last Infusion: 11/22/22 22:05 Dose: Infused Dextrose/Sodium Chloride (D5ns) 1,000 mls @ 75 mls/hr IVCONT .[id number] [facility] Last Admin: 11/23/22 17:28 Dose: 75 mls/hr Levothyroxine Sodium (Levothyroxine Sodium 50 Mcg Tablet) 50 mcg PO DAILY@0600 [facility] Last Admin: 11/23/22 05:07 Dose: Not Given Melatonin (Melatonin 3 Mg Tablet) 6 mg PO BEDTIME PRN PRN Reason: Insomnia Nystatin (Nystatin Cream 15 Gm Tube) 1 appl TOPICAL BID [facility]; Protocol Last Admin: 11/23/22 09:14 Dose: 1 appl Ondansetron HCl (Ondansetron Hcl 4 Mg/2 Ml Vial) 4 mg IVPUSH Q8H PRN PRN Reason: Nausea and Vomiting Polyethylene Glycol (Polyethylene Glycol 3350 17 Gm Powd.Pack) 17 gm PO DAILY [facility] Last Admin: 11/23/22 09:14 Dose: Not Given Sodium Chloride (0.9 % Sodium Chloride Flush 3 Ml Syringe) 3 ml IVFLUSH QSHIFT [facility] Last Admin: 11/23/22 16:29 Dose: 3 ml Exam Exam Date and Time: November 23, [id number] Height,Weight and Vital Signs: Height 5 ft Weight 52.47 kg Last Vital Signs Temp 97.5 F 11/23/22 16:00 Pulse 76 11/23/22 16:00 Resp 16 11/23/22 16:00 BP 134/58 L 11/23/22 16:00 Pulse Ox 97 11/23/22 16:00 O2 Del Method Room Air 11/23/22 16:00 O2 Flow Rate 2 11/22/22 07:36 Oxygen Flow Rate 2 11/19/22 14:31 Pertinent Lab Results Pertinent Lab Results: Laboratory Tests 11/19/22 11/19/22 11/19/22 14:29 15:52 20:25 WBC 10.9 H RBC 2.84 L Hgb 9.7 L Hct 28.7 L MCV 101.1 H MCH 34.2 H MCHC 33.8 RDW 14.4 Plt Count 147 L MPV 9.3 L Immature Gran % (Auto) 0.4 Neut % (Auto) 72.4 Lymph % (Auto) 15.2 L [place] % (Auto) 11.8 H Eos % (Auto) 0.1 Baso % (Auto) 0.1 Lymph # (Auto) 1.7 [place] # (Auto) 1.3 H Eos # (Auto) 0.0 Baso # (Auto) 0.0 Abs Immat Gran (auto) 0.04 H Absolute Neuts (auto) 7.9 Absolute Nucleated RBC 0.000 Nucleated RBC % (auto) 0.0 Sodium 137 Potassium 3.6 D Chloride 100 Carbon Dioxide 28 Anion Gap 13 BUN 26 H Creatinine 1.26 Estim Creat Clear Calc 24.6 Estimated GFR 41 Random Glucose 77 Lactic Acid 1.7 1.2 Calcium 8.8 Total Bilirubin 0.1 Direct Bilirubin < 0.2 AST 19 ALT 10 Alkaline Phosphatase 48 Troponin I High Sens 4.7 B-Natriuretic Peptide 77 Total Protein 7.0 Albumin 3.1 L Lipase 27 Urine Color Yellow Urine Appearance Turbid Urine pH 5.5 Ur Specific [place] 1.015 Urine Protein 100 (2+) H Urine Glucose (UA) Negative Urine Ketones Negative Urine Blood Large (3+) H Urine Nitrite Positive H Ur Leukocyte Esterase Large (3+) H Urine RBC 11-20 H Urine WBC >50 H Ur Squamous Epith Cells >20 Urine Bacteria 4+ Hyaline Casts 3-5 Influenza Type A (PCR) NEGATIVE Influenza Type B (PCR) NEGATIVE RSV RNA Qual (PCR) NEGATIVE SARS-CoV-2 RNA (RT-PCR) NEGATIVE 11/20/22 11/20/22 11/20/22 05:53 07:52 15:55 WBC 6.6 RBC 2.34 L Hgb 7.9 L 9.9 L D Hct 23.4 L 30.0 L D MCV 100.0 H MCH 33.8 H MCHC 33.8 RDW 14.6 Plt Count 139 L MPV 10.0 Immature Gran % (Auto) Neut % (Auto) Lymph % (Auto) [place] % (Auto) Eos % (Auto) Baso % (Auto) Lymph # (Auto) [place] # (Auto) Eos # (Auto) Baso # (Auto) Abs Immat Gran (auto) Absolute Neuts (auto) Absolute Nucleated RBC 0.000 Nucleated RBC % (auto) 0.0 Sodium 142 Potassium 3.7 Chloride 111 H Carbon Dioxide 25 Anion Gap 10 L BUN 16 Creatinine 0.92 Estim Creat Clear Calc 33.8 Estimated GFR 58 Random Glucose 80 Lactic Acid Calcium 8.3 L Total Bilirubin 0.2 Direct Bilirubin AST 17 ALT 6 Alkaline Phosphatase 37 L Troponin I High Sens B-Natriuretic Peptide Total Protein 6.1 L Albumin 3.3 L Lipase Urine Color Urine Appearance Urine pH Ur Specific [place] Urine Protein Urine Glucose (UA) Urine Ketones Urine Blood Urine Nitrite Ur Leukocyte Esterase Urine RBC Urine WBC Ur Squamous Epith Cells Urine Bacteria Hyaline Casts Influenza Type A (PCR) Influenza Type B (PCR) RSV RNA Qual (PCR) SARS-CoV-2 RNA (RT-PCR) 11/21/22 08:07 WBC 7.6 RBC 2.67 L Hgb 8.8 L Hct 26.9 L MCV 100.7 H MCH 33.0 MCHC 32.7 RDW 15.3 Plt Count 174 D MPV 9.8 Immature Gran % (Auto) Neut % (Auto) Lymph % (Auto) [place] % (Auto) Eos % (Auto) Baso % (Auto) Lymph # (Auto) [place] # (Auto) Eos # (Auto) Baso # (Auto) Abs Immat Gran (auto) Absolute Neuts (auto) Absolute Nucleated RBC 0.000 Nucleated RBC % (auto) 0.0 Sodium 143 Potassium 3.8 Chloride 110 H Carbon Dioxide 23 Anion Gap 14 BUN 14 Creatinine 0.99 Estim Creat Clear Calc 31.5 Estimated GFR 54 Random Glucose 96 Lactic Acid Calcium 9.2 D Total Bilirubin Direct Bilirubin AST ALT Alkaline Phosphatase Troponin I High Sens B-Natriuretic Peptide Total Protein Albumin Lipase Urine Color Urine Appearance Urine pH Ur Specific [place] Urine Protein Urine Glucose (UA) Urine Ketones Urine Blood Urine Nitrite Ur Leukocyte Esterase Urine RBC Urine WBC Ur Squamous Epith Cells Urine Bacteria Hyaline Casts Influenza Type A (PCR) Influenza Type B (PCR) RSV RNA Qual (PCR) SARS-CoV-2 RNA (RT-PCR) Airway Mallampati Class: Patient Non-Cooperative TM Dist: >3cm Neck ROM: Full Loose/Missing/Broken Teeth: No Heart: RRR Lungs: CTA Assessment and Plan Assessment Anesthesia Assessment: Anesthesia Plan Discussed and Chart Reviewed Final Anesthetic Review Family History of Problems with Anesthesia: No History of Problems with Anesthesia: No NPO: Yes ASA Class: III and Emergency Final Preanesthetic Review: No Changes in Pt Med Stat, Meds/Allgs Chart Reviewed, Consent Obtained/Reviewed and Anes Risks/Benef Reviewed Patient Risk: High Procedure Risk: Low Anesthetic Plan Anesthetic Plan: GA Disposition: Standard PACU
--- NOTE | 2022-11-23 19:33 | PC.NURSE ---
GUARDIANSHIP DOCUMENT VERIFIED. DAUGHTER AT BEDSIDE TO CONSENT FOR PROCEDURE.
--- NOTE | 2022-11-23 19:43 | MHC.SHP ---
Pre-Procedural Eval Section A Date of Service: 11/23/22 The patient is an INPATIENT: Yes Changes since office visit: No Cold of Flu in the past 2 weeks, No New Medical Problems, No Changes in Medication and No Patient answered all questions The History & Physical has been completed within 30 days and I have reviewed it.: Yes Section B Chief Complaint: hypotension Details of Present Illness: Distal right ureteric stone with hydroureteronephrosis Allergies: Allergies Allergy/AdvReac Type Severity Reaction Status Date / Time No Known Allergies Allergy Verified 06/18/22 14:33 Plan Diagnosis/Plan: Unchanged ( cystoscopy, right retrograde, right ureteroscopy with laser lithotripsy, stent placement) I have reviewed the history and physical and performed a pertinent physical examination on my patient. No changes have occurred unless specified. Time Spent With Patient Time: Total time managing care of this patient today ____ minutes.
[2022-11-23] MEDS: Divalproex Sodium Sprinkles 125 MG CAP.DR.SPR 375 MG PO (22:07)
[2022-11-23] MEDS: Enoxaparin Sodium 40 MG/0.4 ML SYRINGE SUBCUT (22:07)
[2022-11-23] MEDS: Docusate Sodium 100 MG CAPSULE PO (22:07)
[2022-11-23] MEDS: Phenazopyridine HCL 100 MG TABLET PO (22:24)
[2022-11-23] MEDS: cefTRIAXone sodium 2 GM in 0.9 % Sodium Chloride 50 ML IV (23:05)
[2022-11-24 02:59] VITALS: BP 139/68; PULSE 93; RESP 16; TEMP 36.3; O2SAT 97
[2022-11-24] MEDS: Acetaminophen 325 MG TABLET 650 MG PO (03:46)
[2022-11-24] MEDS: Dextrose 5 % and 0.9 % NaCl 1,000 ML 75 ML IVCONT ×2 (05:25→17:12)
[2022-11-24] MEDS: Levothyroxine Sodium 50 MCG TABLET PO (05:25)
[2022-11-24 08:00] VITALS: BP 131/60; PULSE 90; RESP 17; TEMP 36.3; O2SAT 93
[2022-11-24] MEDS: Ketorolac Tromethamine 15 MG/ML VIAL IVPUSH (08:45)
[2022-11-24] MEDS: 0.9 % Sodium Chloride Flush 3 ML SYRINGE IVFLUSH ×2 (08:46→20:00)
[2022-11-24] MEDS: Divalproex Sodium Sprinkles 125 MG CAP.DR.SPR 375 MG PO ×2 (08:46→19:59)
[2022-11-24] MEDS: Folic Acid 1 MG TABLET PO (08:46)
[2022-11-24] MEDS: Aspirin Enteric Coated 81 MG TABLET.DR PO (08:46)
[2022-11-24] MEDS: Nystatin Cream 15 GM TUBE 1 APPL TOPICAL ×2 (08:47→20:01)
[2022-11-24] MEDS: polyethylene glycoL 3350 17 GM POWD.PACK PO (08:47)
--- NOTE | 2022-11-24 10:45 | P.PNIM_ITS ---
Subjective Subjective Date of Service: 11/24/22 Interval History: seen and examined this morning pt seemed uncomfortable overnight and this morning as well pt remains at baseline - nonverbal unable to provide history, ROS Physical Exam 2 Vital Signs: Vital Signs: Last Vital Signs Temp 97.3 F 11/24/22 08:00 Pulse 90 11/24/22 08:00 Resp 17 11/24/22 08:00 BP 131/60 11/24/22 08:00 Pulse Ox 93 11/24/22 08:00 O2 Del Method Nasal Cannula 11/24/22 08:00 O2 Flow Rate 2.0 11/24/22 08:00 Oxygen Flow Rate 2 11/19/22 14:31 BMI result Body Mass Index 22.6 Appearing in some distress, grinding teeth, wincing lung sounds are clear to auscultation heart regular rate rhythm, clear S1, S2 positive bowel sounds, abdomen is soft, nontender neuro patient is alert x3, no focal deficits Objective Data Active Medications Acetaminophen (Acetaminophen 325 Mg Tablet) 650 mg PO Q6H PRN PRN Reason: Pain, Mild (Pain Scale 1-3) Last Admin: 11/24/22 03:46 Dose: 650 mg Documented By: NORTH Albuterol Sulfate (Albuterol Sulfate (0.083%) 2.5 Mg/3 Ml Vial.Neb) 1.25 mg INHALE TID PRN PRN Reason: shortness of breath or wheezing Aspirin (Aspirin Enteric Coated 81 Mg Tablet.) 81 mg PO DAILY [facility] Last Admin: 11/24/22 08:46 Dose: 81 mg Documented By: EDU Bisacodyl (Bisacodyl 10 Mg Supp.Rect) 10 mg [place] DAILY PRN PRN Reason: Constipation Last Admin: 11/21/22 13:51 Dose: 10 mg Documented By: NOLAN Divalproex Sodium (Divalproex Sodium Sprinkles 125 Mg Cap.) 375 mg PO BID [facility] Last Admin: 11/24/22 08:46 Dose: 375 mg Documented By: EDU Docusate Sodium (Docusate Sodium 100 Mg Capsule) 100 mg PO BEDTIME [facility] Last Admin: 11/23/22 22:07 Dose: 100 mg Documented By: ARTI Enoxaparin Sodium (Enoxaparin Sodium 40 Mg/0.4 Ml Syringe) 40 mg SUBCUT Q24H [facility] Last Admin: 11/23/22 22:07 Dose: 40 mg Documented By: ARTI Folic Acid (Folic Acid 1 Mg Tablet) 1 mg PO DAILY [facility] Last Admin: 11/24/22 08:46 Dose: 1 mg Documented By: EDU Ceftriaxone Sodium 2 gm/ (Sodium Chloride) 50 mls @ 100 mls/hr IV Q24H [facility] Last Infusion: 11/23/22 23:46 Dose: Infused Documented By: ARTI Dextrose/Sodium Chloride (D5ns) 1,000 mls @ 75 mls/hr IVCONT .[id number] [facility] Last Admin: 11/24/22 05:25 Dose: 75 mls/hr Documented By: ARTI Levothyroxine Sodium (Levothyroxine Sodium 50 Mcg Tablet) 50 mcg PO DAILY@0600 [facility] Last Admin: 11/24/22 05:25 Dose: 50 mcg Documented By: ARTI Melatonin (Melatonin 3 Mg Tablet) 6 mg PO BEDTIME PRN PRN Reason: Insomnia Nystatin (Nystatin Cream 15 Gm Tube) 1 appl TOPICAL BID [facility]; Protocol Last Admin: 11/24/22 08:47 Dose: 1 appl Documented By: EDU Ondansetron HCl (Ondansetron Hcl 4 Mg/2 Ml Vial) 4 mg IVPUSH Q8H PRN PRN Reason: Nausea and Vomiting Polyethylene Glycol (Polyethylene Glycol 3350 17 Gm Powd.Pack) 17 gm PO DAILY [facility] Last Admin: 11/24/22 08:47 Dose: 17 gm Documented By: EDU Sodium Chloride (0.9 % Sodium Chloride Flush 3 Ml Syringe) 3 ml IVFLUSH QSHIFT [facility] Last Admin: 11/24/22 08:46 Dose: 3 ml Documented By: EDU Labs 11/21/22 08:07 11/21/22 08:07 Assessment and Plan (1) Bacteremia: Status: Acute (2) Acute UTI: Status: Acute (3) Right kidney stone: Status: Acute Plan This is a 82-year-old female with pertinent history of hypothyroidism, seizure disorder, advanced dementia who was brought to the emergency department for evaluation of hypotension. Sepsis due to acute UTI/bacteremia. Sepsis resolved urine culture growing e.coli blood cultures growing e.coli, coag negative staph continue IV ceftriaxone>plan to transition to po abx for total [address] scan showing stone lodged in right ureter> s/p lithotripsy 11/23/22, pain management ID following constipation seen on CT had large BM 11/22/22, but persistent stool burden on CT enema bowel regimen compression fractures CT showing compression fractures of L1, L4 - age indeterminate conservative management for now Acute metabolic encephalopathy r/t above with underlying advanced dementia. pt back to baseline per family non-verbal and dependent for ADLs seen by speech, rec purred diet with thin liquids acute on chronic anemia likely dilutional no recent baseline no evidence of acute blood loss H/H stable thrombocytopenia likely r/t sepisis resolved Seizure disorder continue divalproex Unspecified dementia baseline primarily nonverbal, dependent for all ADLs Maintain sleep-wake cycle hypothyroid continue synthroid DVT prophylaxis: Lovenox Full code attending dr. Ballard DISPO plan for dc home when medically stable Requires ongoing admission for IV antibiotics, close monitoring, specialist evaluation Time Spent With Patient Time: Total time managing care of this patient today ____ minutes. Quality Stroke Does the patient have a stroke diagnosis?: No VTE Prior VTE?: No VTE Risk Level:: Medical - moderate - high VTE Device Contraindication: Treatment Not Indicated VTE Drug Contraindication: N/A - Med Ordered
--- NOTE | 2022-11-24 13:24 | P.CDIM_ITS ---
PROVIDER RESPONSE TEXT: To clarify, the appropriate diagnosis supported by the clinical indicators: Other (explain): no septic shock QUERY TEXT: PHYSICIAN'S DOCUMENTATION REQUEST Date of Query: 11/24/2022 10:20 AM EDT Patient Name: Radah Berry Admit Date: 11/19/2022 Dear Sussy Burnette, A review of the medical record indicates additional documentation may be needed. Please review below and update the documentation accordingly. Clinical indicators: ED 11/19 - Found by visiting nurse to be hypotensive 70/50 IV access was placed was given 1 L of fluid and patient was transported to hospital. Clinical impression: Septic shock Infection disease consult note: Reason for consult: hypotension, sepsis concern Assessment and plan: Septic shock Consistency and clarity of a diagnosis noted within the medical record: Septic shock resolved, suspected, possible, probable, treating, not treating etc. Other please specify Other (explain)Clinically unable to determine (explain)Thank you, Aundrea Ross, CCS, CDIS Use of terms such as suspected, likely, concern for, or probable (associated with a specific diagnosi s that is being evaluated, monitored, or treated as if it exists) are acceptable and can be coded in the inpatient se tting, when documented at the time of discharge. Please use your independent medical judgment in providing your response. THIS QUERY IS PART OF THE PERMANENT MEDICAL RECORD
--- NOTE | 2022-11-24 13:49 | MHC.CM.PN ---
EMR REVIEWED. PER MD ROUNDS PATIENT MAY DC TOMORROW, HOME WITH DAUGHTER TO RESUME [facility] PALLIATIVE CARE. CM WILL CONTINUE TO FOLLOW FOR ANY CHANGE IN DC NEEDS/PLAN.
--- NOTE | 2022-11-24 14:34 | HO.POSTANES ---
Post Anesthesia Evaluation Post Anesthesia Evaluation Date of Service: 11/24/22 Vital Signs: Vital Signs Temp Pulse Resp BP Pulse Ox O2 Del Method O2 Flow Rate 11/24/22 08:00 97.3 F 90 17 131/60 93 Nasal Cannula 2.0 11/24/22 02:59 97.4 F 93 16 139/68 97 Room Air Anesthesia: General Mental Status: Awake Pain Control: Satisfactory Nausea/Vomiting: None Hydration: Adequate Anesthesia-Related Issues: No Anes. Related Issues
[2022-11-24 16:00] VITALS: BP 146/68; PULSE 99; RESP 16; TEMP 36.5
[2022-11-24] MEDS: Enoxaparin Sodium 40 MG/0.4 ML SYRINGE SUBCUT (19:59)
[2022-11-24 20:00] VITALS: BP 124/62; PULSE 85; RESP 16; TEMP 36.5; O2SAT 100
[2022-11-24] MEDS: cefTRIAXone sodium 2 GM in 0.9 % Sodium Chloride 50 ML IV (22:26)
[2022-11-25 03:12] VITALS: BP 146/66; PULSE 78; RESP 16; TEMP 35.9; O2SAT 100
[2022-11-25] MEDS: Dextrose 5 % and 0.9 % NaCl 1,000 ML 75 ML IVCONT (03:43)
[2022-11-25] MEDS: Levothyroxine Sodium 50 MCG TABLET PO (05:49)
[2022-11-25 07:25] VITALS: BP 117/68; PULSE 81; RESP 17; TEMP 36.2; O2SAT 99
[2022-11-25] MEDS: Aspirin Enteric Coated 81 MG TABLET.DR PO (08:50)
[2022-11-25] MEDS: Divalproex Sodium Sprinkles 125 MG CAP.DR.SPR 375 MG PO ×2 (08:50→19:28)
[2022-11-25] MEDS: Folic Acid 1 MG TABLET PO (08:50)
[2022-11-25] MEDS: 0.9 % Sodium Chloride Flush 3 ML SYRINGE IVFLUSH ×3 (08:51→19:35)
[2022-11-25] MEDS: Nystatin Cream 15 GM TUBE 1 APPL TOPICAL ×2 (08:54→19:32)
--- NOTE | 2022-11-25 10:28 | MHC.CM.PN ---
EMR REVIEWED. PER MD ROUNDS PT NOT MEDICALLY CLEARED, ANTICIPATED DC TOMORROW - HOME WITH DAUGHTER TO RESUME PALLIATIVE CARE PROGRAM. SPOKE WITH CARLOS AT [facility] WHO CONFIRMED DAUGHTER IS PAID COMPOSITION [employer] CAREGIVER AND HAS 10 RESPITE HOURS/WEEK. CARLOS IS AWARE OF DC PLAN. DAUGHTER IS AT BEDSIDE AND AWARE OF DC PLAN. BLS TRANSPORT WILL BE BOOKED.
--- NOTE | 2022-11-25 11:27 | HO.PM.IMPN ---
Subjective Subjective Date of Service: 11/25/22 Interval History: Nonverbal Appears comfortable Hematuria O2 weaned to 0.5L via NC, not on home O2 Discussed with daughter, her primary caregiver, at bedside Review of Systems Review of Systems: Yes all other systems are reviewed and are negative Physical Exam Vital Signs: Vital Signs: Last Vital Signs Temp 97.2 F 11/25/22 07:25 Pulse 81 11/25/22 07:25 Resp 17 11/25/22 07:25 BP 117/68 11/25/22 07:25 Pulse Ox 99 11/25/22 07:25 O2 Del Method Nasal Cannula 11/25/22 07:25 O2 Flow Rate 2.0 11/25/22 07:25 Oxygen Flow Rate 2 11/19/22 14:31 BMI result Body Mass Index 22.6 Gen: in no acute distress HEENT: sclera anicteric, moist mucus membranes Neck: supple Lungs: clear to auscultation bilaterally Heart: regular rate and rhythm, no murmurs Abd: soft, non-tender, non-distended Ext: no edema Skin: warm/well-perfused Neuro: awake, nonverbal Psych: unable to assess insight Objective Data Active Medications Acetaminophen (Acetaminophen 325 Mg Tablet) 650 mg PO Q6H PRN PRN Reason: Pain, Mild (Pain Scale 1-3) Last Admin: 11/24/22 03:46 Dose: 650 mg Documented By: NORTH Albuterol Sulfate (Albuterol Sulfate (0.083%) 2.5 Mg/3 Ml Vial.Neb) 1.25 mg INHALE TID PRN PRN Reason: shortness of breath or wheezing Aspirin (Aspirin Enteric Coated 81 Mg Tablet.) 81 mg PO DAILY [facility] Last Admin: 11/25/22 08:50 Dose: 81 mg Documented By: SUSHILA Bisacodyl (Bisacodyl 10 Mg Supp.Rect) 10 mg [place] DAILY PRN PRN Reason: Constipation Last Admin: 11/21/22 13:51 Dose: 10 mg Documented By: NOLAN Divalproex Sodium (Divalproex Sodium Sprinkles 125 Mg Cap.) 375 mg PO BID [facility] Last Admin: 11/25/22 08:50 Dose: 375 mg Documented By: SUSHILA Docusate Sodium (Docusate Sodium 100 Mg Capsule) 100 mg PO BEDTIME [facility] Last Admin: 11/24/22 20:23 Dose: Not Given Documented By: ARTI Non-Admin Reason: pt daughter refused Enoxaparin Sodium (Enoxaparin Sodium 40 Mg/0.4 Ml Syringe) 40 mg SUBCUT Q24H [facility] Last Admin: 11/24/22 19:59 Dose: 40 mg Documented By: ARTI Folic Acid (Folic Acid 1 Mg Tablet) 1 mg PO DAILY [facility] Last Admin: 11/25/22 08:50 Dose: 1 mg Documented By: SUSHILA Ceftriaxone Sodium 2 gm/ (Sodium Chloride) 50 mls @ 100 mls/hr IV Q24H [facility] Last Infusion: 11/24/22 23:09 Dose: Infused Documented By: ARTI Dextrose/Sodium Chloride (D5ns) 1,000 mls @ 75 mls/hr IVCONT .[id number] [facility] Last Admin: 11/25/22 03:43 Dose: 75 mls/hr Documented By: ARTI Levothyroxine Sodium (Levothyroxine Sodium 50 Mcg Tablet) 50 mcg PO DAILY@0600 [facility] Last Admin: 11/25/22 05:49 Dose: 50 mcg Documented By: ARTI Melatonin (Melatonin 3 Mg Tablet) 6 mg PO BEDTIME PRN PRN Reason: Insomnia Nystatin (Nystatin Cream 15 Gm Tube) 1 appl TOPICAL BID [facility]; Protocol Last Admin: 11/25/22 08:54 Dose: 1 appl Documented By: SUSHILA Ondansetron HCl (Ondansetron Hcl 4 Mg/2 Ml Vial) 4 mg IVPUSH Q8H PRN PRN Reason: Nausea and Vomiting Polyethylene Glycol (Polyethylene Glycol 3350 17 Gm Powd.Pack) 17 gm PO DAILY [facility] Last Admin: 11/25/22 08:53 Dose: Not Given Documented By: SUSHILA Non-Admin Reason: Patient Refused Sodium Chloride (0.9 % Sodium Chloride Flush 3 Ml Syringe) 3 ml IVFLUSH QSHIFT [facility] Last Admin: 11/25/22 08:51 Dose: 3 ml Documented By: SUSHILA Labs 11/21/22 08:07 11/21/22 08:07 Microbiology Microbiology Results: Microbiology 11/19/22 15:52 Blood Culture - Final Blood - Venous No growth after 5 days. Assessment and Plan (1) Bacteremia: Status: Acute (2) Acute UTI: Status: Acute (3) Right kidney stone: Status: Acute Plan d7 82yo F with advanced dementia, hypothyroidism, seizure disorder sent in for hypotension, found to be septic sepsis due to E coli bacteremia/UTI, anguiano-sensitive - IV ceftriaxone d6/14, transition to PO cefuroxime upon discharge - source control as below mild right renal hydronephrosis and hydroureter due to 3 mm stone lodged in the distal right ureter. - POD2 lithotripsy constipation - bowel regimen compression fxs, L1 + L4, age-indeterminate - conservative management acute encephalopathy due to sepsis - resolved, back to baseline per family [non-verbal, completely dependent for ADLs] - [employer]: NDD1 solids, thin liquids acute/chronic anemia - likely dilutional, H+H stable mild thrombocytopenia - resolved, was due to sepsis seizure disorder - continue VPA dementia, unspecified - maintain sleep-wake cycle hypothyroidism - continue LT4 VTE ppx - LMWH dispo - anticipate home tomorrow if can wean off O2 In my clinical judgment, the patient requires continued inpatient hospitalization for the following reasons: postop care Time Spent With Patient Time: Total time managing care of this patient today __35__ minutes. Quality Stroke Does the patient have a stroke diagnosis?: No VTE Prior VTE?: No VTE Risk Level:: Medical - moderate - high VTE Device Contraindication: Treatment Not Indicated VTE Drug Contraindication: N/A - Med Ordered
--- NOTE | 2022-11-25 14:19 | MHC.SLORD ---
Speech Language Pathology Order Status: Attempted to see patient for dysphagia tx, patient sleeping. Patient's daughter at bedside confirmed patient's current diet recommendations of pureed solids (NDD1), thin liquids, crushed meds in puree, and 1-1 assist is consistent w/ current baseline. Patient's daughter reports that patient had a cough and some difficulty with breakfast (cream of oat?) but no difficulty with lunch. Patient's daughter requested PROGRAM MANAGER RN team to re-evaluate during a meal. PROGRAM MANAGER RN to continue to follow. Per RN, patient d/c is pending for tomorrow.
[2022-11-25 15:14] VITALS: BP 124/60; PULSE 71; RESP 19; TEMP 35.6; O2SAT 99
[2022-11-25 19:16] VITALS: BP 140/73; PULSE 91; RESP 18; TEMP 36; O2SAT 100
[2022-11-25] MEDS: Enoxaparin Sodium 40 MG/0.4 ML SYRINGE SUBCUT (19:27)
[2022-11-25] MEDS: cefTRIAXone sodium 2 GM in 0.9 % Sodium Chloride 50 ML IV (23:06)
[2022-11-26 04:00] VITALS: BP 125/66; PULSE 64; RESP 18; TEMP 36.2; O2SAT 100
[2022-11-26] MEDS: Levothyroxine Sodium 50 MCG TABLET PO (05:38)
[2022-11-26 07:15] VITALS: BP 127/58; PULSE 69; RESP 18; TEMP 36.4; O2SAT 99
[2022-11-26] MEDS: Aspirin Enteric Coated 81 MG TABLET.DR PO (08:45)
[2022-11-26] MEDS: 0.9 % Sodium Chloride Flush 3 ML SYRINGE IVFLUSH (08:45)
[2022-11-26] MEDS: Folic Acid 1 MG TABLET PO (08:45)
[2022-11-26] MEDS: Divalproex Sodium Sprinkles 125 MG CAP.DR.SPR 375 MG PO (08:45)
[2022-11-26] MEDS: Sennosides/Docusate Sodium TABLET 2 TAB PO (08:45)
[2022-11-26] MEDS: Nystatin Cream 15 GM TUBE 1 APPL TOPICAL (08:52)
--- NOTE | 2022-11-26 10:51 | P.DS_ITS ---
DS: Providers Provider Date of Service: 11/26/22 Date of admission: 11/19/22 19:32 Date of discharge: 11/26/22 Primary care physician: Unknown Physician Consults: 11/21/22 11:06 Consult to Infectious Diseases Routine Consulting Provider: [facility] [place] Infectious Disease Reason for consultation: bacteremia Has provider been notified: No 11/22/22 16:10 Consult to Urology Routine Consulting Provider: Alli Joyce Reason for consultation: right stone lodged in distal right ureter with mild hydro; uti, bacteremia Has provider been notified: No DS: Diagnosis Discharge Diagnosis (1) Bacteremia: Status: Acute (2) Acute UTI: Status: Acute (3) Right kidney stone: Status: Acute (4) Hydronephrosis: Status: Acute (5) Encephalopathy acute: Status: Acute (6) Sepsis: Status: Acute (7) Sepsis with encephalopathy: Status: Acute DS: Summary Hospital Course Hospital Course: from admission H+P by hospitalit Krzysztof Pena MD, 11/19/22: This is a 82-year-old female with pertinent history of hypothyroidism, seizure disorder, unspecified dementia who was brought to the emergency department for evaluation of hypotension. Patient was recently treated for UTI as an outpatient. Visiting nurse found patient to be hypotensive and sent to the ER. Upon EMS arrival, patient systolics were in the 70s. She was resuscitated with IV crystalloids with improvement of systolic blood pressure. Unable to obtain history from the patient. History obtained from family at bedside and ER provider. Patient has been more lethargic over the last 1-2 days. Also has been having fevers and chills. Unable to obtain review of systems. In the emergency department, patient was found to be septic and urine concerning for UTI. This is a 82yo bedbound F with advanced dementia, hypothyroidism, and seizure disorder cared for at home by her daughter who was sent in by her VNA for hypotension. She was found to be septic and admitted to the hospitalist service. Hospital course by problem: sepsis due to E coli bacteremia/UTI, anguiano-sensitive - Treated with 6 days of IV ceftriaxone d6/14. ID consulted. Transitioned to 8 days of PO cefuroxime upon discharge, for total 14 days of antibiotic treatment. - Source control as below. mild right renal hydronephrosis and hydroureter due to 3 mm stone lodged in the distal right ureter. - Urology was consulted and lithotripsy performed on 11/23/22. She will need outpatient Urology follow-up. constipation - Bowel regimen was started and prescribed. acute encephalopathy due to sepsis - Resolved, back to baseline per family [non-verbal, completely dependent for ADLs]. PRESSURE SUPERVISOR was consulted: NDD1 solids, thin liquids. She was discharged back home with resumption of 21/09 care by her daughter and VNA services. Time Spent with Patient Time attestation: Total time managing care of this patient today _35__ minutes. Discharge coordination time: Greater than 30 minutes Quality: Safe Use of Opioids Does Pt have an Active Cancer Diagnosis on the Problem List?: No Quality: Stroke Does the patient have a stroke diagnosis?: No Physical Exam Vital Signs: Vital Signs: Last Vital Signs Temp 97.5 F 11/26/22 07:15 Pulse 69 11/26/22 07:15 Resp 18 11/26/22 07:15 BP 127/58 L 11/26/22 07:15 Pulse Ox 99 11/26/22 07:15 O2 Del Method CPAP 11/26/22 07:15 O2 Flow Rate 2 11/25/22 19:16 Oxygen Flow Rate 2 11/19/22 14:31 BMI result Body Mass Index 22.6 Gen: in no acute distress HEENT: sclera anicteric, moist mucus membranes Neck: supple Lungs: clear to auscultation bilaterally Heart: regular rate and rhythm, no murmurs Abd: soft, non-tender, non-distended Ext: no edema Skin: warm/well-perfused Neuro: awake, nonverbal Psych: unable to assess insight DS: Data Data Completed and Pending Completed studies during hospitalization [Text1]: Laboratory Results WBC 7.6 X10*3/uL (4.8-10.8) 11/21/22 08:07 RBC 2.67 X10*6/uL (4.20-5.50) L 11/21/22 08:07 Hgb 8.8 g/dl (12.0-16.0) L 11/21/22 08:07 Hct 26.9 % (37.0-47.0) L 11/21/22 08:07 MCV 100.7 fL (80.0-98.0) H 11/21/22 08:07 MCH 33.0 pg (27.0-33.0) 11/21/22 08:07 MCHC 32.7 g/dl (31.0-35.0) 11/21/22 08:07 RDW 15.3 % (11.0-16.0) 11/21/22 08:07 Plt Count 174 X10*3/uL (160-400) D 11/21/22 08:07 MPV 9.8 fL (9.4-12.3) 11/21/22 08:07 Immature Gran % (Auto) 0.4 % (0.0-0.4) 11/19/22 15:52 Neut % (Auto) 72.4 % (45-73) 11/19/22 15:52 Lymph % (Auto) 15.2 % (20-40) L 11/19/22 15:52 [place] % (Auto) 11.8 % (2-11) H 11/19/22 15:52 Eos % (Auto) 0.1 % (0-4) 11/19/22 15:52 Baso % (Auto) 0.1 % (0-2) 11/19/22 15:52 Lymph # (Auto) 1.7 X10*3/uL (1.2-4.9) 11/19/22 15:52 [place] # (Auto) 1.3 X10*3/uL (0.1-1.2) H 11/19/22 15:52 Eos # (Auto) 0.0 X10*3/uL (0.0-0.4) 11/19/22 15:52 Baso # (Auto) 0.0 X10*3/uL (0.0-0.2) 11/19/22 15:52 Abs Immat Gran (auto) 0.04 X10*3/uL (0.00-0.03) H 11/19/22 15:52 Absolute Neuts (auto) 7.9 x10*3/uL (2.0-8.3) 11/19/22 15:52 Absolute Nucleated RBC 0.000 X10*3/uL (0.0-0.012) 11/21/22 08:07 Nucleated RBC % (auto) 0.0 /100WBC (0.0-0.2) 11/21/22 08:07 Sodium 143 mmol/L (135-145) 11/21/22 08:07 Potassium 3.8 mmol/L (3.3-5.1) 11/21/22 08:07 Chloride 110 mmol/L (96-108) H 11/21/22 08:07 Carbon Dioxide 23 mmol/L (22-29) 11/21/22 08:07 Anion Gap 14 (12-20) 11/21/22 08:07 BUN 14 mg/dL (9-16) 11/21/22 08:07 Creatinine 0.99 mg/dL (0.5-1.4) 11/21/22 08:07 Estim Creat Clear Calc 31.5 11/21/22 08:07 Estimated GFR 54 11/21/22 08:07 Random Glucose 96 mg/dL (60-115) 11/21/22 08:07 Lactic Acid 1.2 mmol/L (0.5-2.0) 11/19/22 20:25 Calcium 9.2 mg/dL (8.4-10.2) D 11/21/22 08:07 Total Bilirubin 0.2 mg/dL (0.0-1.0) 11/20/22 05:53 Direct Bilirubin < 0.2 mg/dL (0.0-0.5) 11/19/22 15:52 AST 17 U/L (5-31) 11/20/22 05:53 ALT 6 U/L (0-31) 11/20/22 05:53 Alkaline Phosphatase 37 U/L (39-117) L 11/20/22 05:53 Troponin I High Sens 4.7 ng/L (<3.5-17.0) 11/19/22 15:52 B-Natriuretic Peptide 77 pg/mL (<100) 11/19/22 15:52 Total Protein 6.1 g/dL (6.5-8.0) L 11/20/22 05:53 Albumin 3.3 g/dL (3.5-5.0) L 11/20/22 05:53 Lipase 27 U/L (8-78) 11/19/22 15:52 Urine Color Yellow 11/19/22 14:29 Urine Appearance Turbid 11/19/22 14:29 Urine pH 5.5 (5.0-9.0) 11/19/22 14:29 Ur Specific [place] 1.015 (1.005-1.025) 11/19/22 14:29 Urine Protein 100 (2+) mg/dL (Neg-Trace) H 11/19/22 14:29 Urine Glucose (UA) Negative mg/dL (Negative) 11/19/22 14:29 Urine Ketones Negative mg/dL (Negative) 11/19/22 14:29 Urine Blood Large (3+) (Negative) H 11/19/22 14:29 Urine Nitrite Positive (Negative) H 11/19/22 14:29 Ur Leukocyte Esterase Large (3+) (Negative) H 11/19/22 14:29 Urine RBC 11-20 /HPF (0-2) H 11/19/22 14:29 Urine WBC >50 /HPF (0-5) H 11/19/22 14:29 Ur Squamous Epith Cells >20 /HPF (0-2) 11/19/22 14:29 Urine Bacteria 4+ (None Seen) 11/19/22 14:29 Hyaline Casts 3-5 /LPF (0-2) 11/19/22 14:29 Influenza Type A (PCR) NEGATIVE (Negative) 11/19/22 15:52 Influenza Type B (PCR) NEGATIVE (Negative) 11/19/22 15:52 RSV RNA Qual (PCR) NEGATIVE (Negative) 11/19/22 15:52 SARS-CoV-2 RNA (RT-PCR) NEGATIVE (Negative) 11/19/22 15:52 Impressions Chest X-Ray 11/19/22 14:59 IMPRESSION: Low lung volumes. No convincing evidence for an acute process. Abdomen/Pelvis CT 11/22/22 11:21 IMPRESSION: Very limited exam due to motion artifact, noncontrasted study, and position. * Mild right renal hydronephrosis and hydroureter due to 3 mm stone lodged in the distal right ureter. * Heavy sigmoid diverticulosis without evidence of acute diverticulitis. * Excess amount of stool in the colon suggesting constipation. * Bibasilar infiltrate/atelectasis and small bilateral pleural effusions. * Compression fractures of L1 and superior endplate of L4. (Referring physician staff is being called, by physician staff assistance, to be alerted of the above critical findings and recommendations.) Kristi Ahmadi 11/22/2022 4:03 PM Discharge Plan Discharge Anticipated Discharge Date/Time: 11/26/22 10:48 Patient Disposition: Home Health Service Discharge Diagnosis: sepsis due to E coli bacteremia/UTI mild right renal hydronephrosis and hydroureter due to 3 mm stone lodged in the distal right ureter acute encephalopathy due to sepsis constipation Referrals: Alli Joyce MD [Physician] - 1 Week Discharge Medications: New cefuroxime axetil 500 mg tablet 500 mg PO BID Qty: 16 0RF polyethylene glycol 3350 17 gram Powder In Packet 17 g PO DAILY PRN (Reason: constipation) Qty: 30 0RF Continued (DME) Accu-Chek Arianne Plus test strp Strip See Rx Instructions .ROUTE .MEDSUPPLY Qty: 10 2RF Rx Instructions: As directed folic acid 1 mg tablet 1 mg PO DAILY Qty: 90 3RF albuterol sulfate 2.5 mg /3 mL (0.083 %) solution for nebulization 1.25 mg inhalation TID PRN (Reason: shortness of breath or wheezing) 60 Days Qty: 90 6RF multivitamin Tablet 1 tab PO DAILY 90 Days Qty: 90 3RF levothyroxine 50 mcg tablet 50 mcg PO QAM Qty: 90 1RF nystatin 100,000 unit/gram cream 1 appl topical BID 14 Days Qty: 15 1RF bisacodyl 10 mg suppository 10 mg WV DAILY PRN (Reason: constipation) 90 Days Qty: 50 3RF (DME) wipes See Rx Instructions .Route .MEDSUPPLY Qty: 300 11RF Rx Instructions: As directed (DME) Goodnites Bed Mats 2.6 X 2.9 feet pad See Rx Instructions .ROUTE .MEDSUPPLY Qty: 90 11RF Rx Instructions: As directed (DME) adult pull-ups medium See Rx Instructions .Route .MEDSUPPLY Qty: 120 11RF Rx Instructions: As directed (DME) Biobrane Gloves Small Bandage See Rx Instructions .ROUTE .MEDSUPPLY Qty: 180 11RF Rx Instructions: Use 1 pair as needed (DME) wheelchair with seatbelt See Rx Instructions .Route .MEDSUPPLY Qty: 1 0RF Rx Instructions: As directed (DME) pillow See Rx Instructions .Route .MEDSUPPLY Qty: 1 0RF Rx Instructions: As directed aspirin 81 mg tablet,delayed release (DR/EC) 81 mg PO DAILY Qty: 90 3RF divalproex 125 mg capsule, delayed rel sprinkle 375 mg PO BID 90 Days Qty: 540 3RF Discharge Orders: Discharge Order (Routine); Ordered 11/26/22 Ordered By: Jessica Naranjo Diet: Advance to usual diet Activity on Discharge: As tolerated Stand Alone Forms: Patient Portal Discharge page Care Plan Goals: Cure of infection Health Concerns: sepsis due to E coli bacteremia/UTI mild right renal hydronephrosis and hydroureter due to 3 mm stone lodged in the distal right ureter acute encephalopathy due to sepsis constipation Plan of Treatment: take cefuroxime twice daily for 8 days follow up with [facility] [place] Urology in 1-2 weeks take Miralax as needed for constipation pureed solids, thin liquids Please follow up with your primary care doctor within 1 week. Return to the hospital if you experience recurrent or worsening symptoms. Assessment: See discharge summary
--- NOTE | 2022-11-26 11:17 | MHC.CM.PN ---
PTS DC WAS HELD YESTERDAY SHE WAS WEANED OFF THE O2 AND IS NOW CLEARED FOR DC CM MET WITH PTS DAUGHTER AT BEDSIDE SHE IS AWARE PT WILL DC WITH RESUMPTION OF SERVICES BLS TRANSPORT BOOKED FOR 1500 HOURS
--- NOTE | 2022-11-26 11:23 | MHC.CM.PN ---
PT CLEARED TO DC HOME TODAY WITH RESUMPTION OF SERVICES CM MET WITH PTS DAUGHTER BEDSIDE SHE IS AWARE OF, AND AGREEABLE TO, DISCHARGE BLS TRANSPORT BOOKED FOR 1500 HOURS
--- NOTE | 2022-11-26 12:09 | MHC.SL.SWA ---
Speech Pathologist Impression: Risk of aspiration, oropharyngeal dysphagia Risk of Aspiration Due to: Lethargy Neurological Condition Reduced Cognition Dysphasia Diet Status: DOWNGRADE to HTL Liquid Consistency and Strategies for Safe Swallow: Liquid Intake Recommendation: Honey Thick Liquid Intake Strategies: Small Sips Via teaspoon or straw (control bolus size w/ pinch) Solid Food Consistency: Dietary Recommendations: Pureed (NDD1) Additional Modifications to Solid Foods: Recommend continue w/ PUREED (NDD1) diet and DOWNGRADE to HONEY THICK liquids via teaspoon or CONTROLLED straw sip (w/ straw pinch), pills CRUSHED in PUREE. Pt requires TOTAL 1:1 assistance feeding and strict aspiration precautions. Pt must be awake and alert for presentation of PO. Tray may need to be held if pt is lethargic or not attending to meal. Diet order updated by DIRECTOR PUBLIC. Care team (MD, RN, RD) also notified of change via [place] Message. DIRECTOR PUBLIC will continue to follow. Oral Medication Intake: Crushed with Puree Please contact the pharmacy regarding appropriate crushable or liquid drug formulations that are available whenever modified delivery is recommended. Compensatory Strategies and Precautions to be Taken for Safe Swallow: Sitting Upright (90 deg) Small Bites and Sips Rate of Ingestion Change Oral Check Avoid Specific Foods Supervision While Eating and Drinking for Safe Swallow: Total Assistance (1:1) Foods to Avoid: Mixed textures Swallowing Recommended Treatments: Compens. Strategy Educat. Recommendation for Speech: Inpatient Speech Therapy Enrollment Nurse Clinican/Clinical Fellow: Yes: Keira Shields Supervisory Statement: I have reviewed and agree with the student/clinical fellow's documentation: Yes Speech Language Pathologist: Shwetha Amor M.A., CCC-DIRECTOR PUBLIC
--- NOTE | 2022-12-03 16:19 | W.PM.OPN ---
Operative Note Operative Note Date of Service: 11/26/22 Narrative: PreOperative Diagnosis: Distal left ureteric stone Post Operative Diagnosis: Post left stone passage Procedure: - cystoscopy, left retrograde - left dilatation of ureteric orifice under fluoroscopy - left ureteroscopy - left stent placement Surgeon: Dr Alli Joyce Anesthesia: General Indications for procedure: Present to hospital with left flank pain. CT imaging shows distal left ureteric stone with mild hydronephrosis. Procedure: After informed consent was verified the patient was brought to the operating room and placed in a supine position. Anesthesia was administered per protocol. The patient was placed in a modified dorsal lithotomy position and prepped and draped in a sterile fashion. Safety pause time-out and side of surgery were confirmed. Images were available for review. Antibiotic administration confirmed. A 22 Panamanian cystoscope was inserted per urethra. The urethra was without aabnormality. The bladder was normal in its entirety. Both ureteric orifices were seen in normal position . The left ureteric orifice was cannulated and a retrograde examination was performed. No filling defect seen . A Sensor guidewire was placed up to the level of the renal pelvis under fluoroscopy. The rigid cystoscope was removed. A Benson dilator was placed over the Sensor guidewire and used to dilate the ureteric orifice under fluoroscopy. The dilator was removed. The semi rigid ureteral scope was placed alongside the Sensor guidewire. No stone was seen. Ureteric edema was seen A decision was made to place a ureteric stent. Based on the height of the patient a 6 Fr x 26 stent was used. A 6 Panamanian by 26 cm double-J stent was placed into the renal pelvis and bladder under a combination of fluoroscopy and direct visualization. The symphisis pubis was used as a radiographic marker to release the stent and good coil was seen within the bladder confirming position. The string had been left on the stent to allow easy removal The bladder was emptied. The patient tolerated the procedure well and was extubated in the operating room. Unfortunately during patient transferred from operative table to the stretcher the stent was pulled from the bladder. Decision was made not to replace Pathology: Drains:
== END 2022-11-26 18:44 | disposition home health service (06) | DRG 853 ==
LOC: HO.ED 18:37 → HO.EDOVER 20:01 → HO.S3 20:10
PROVIDERS: Physician Assistant Medical; Urology; Admitting Provider Student in an Organized Health Care Education/Training Program; Emergency Provider Emergency Medicine; Visit Provider Family Medicine
PROC: 0T778DZ Dilation of Left Ureter with Intraluminal Device, Via Natural or Artificial Opening Endoscopic (ICD-10-PCS; principal; 2022-11-23 14:50)
DX: A41.51 Sepsis due to Escherichia coli [E. coli] (principal); G93.41 Metabolic encephalopathy; L03.116 Cellulitis of left lower limb; N13.6 Pyonephrosis; R65.20 Severe sepsis without septic shock; E11.42 Type 2 diabetes mellitus with diabetic polyneuropathy; E03.9 Hypothyroidism, unspecified; D69.59 Other secondary thrombocytopenia; F03.90 Unspecified dementia, unspecified severity, without behavioral disturbance, psychotic disturbance, mood disturbance, and anxiety; G40.909 Epilepsy, unspecified, not intractable, without status epilepticus; G47.33 Obstructive sleep apnea (adult) (pediatric); K59.00 Constipation, unspecified; Z20.822 Contact with and (suspected) exposure to COVID-19; Z99.3 Dependence on wheelchair; Z79.890 Hormone replacement therapy; Z79.899 Other long term (current) drug therapy
CPT/HCPCS: 0241U; 36415; 71045; 74176; 80048; 80053; 80076; 81001; 83605; 83690; 83880; 84484; 85014; 85018; 85025; 85027; 87040; 87077; 87086; 87088; 87147; 87186; 87205; 92610; 93005; 99285; C1758; C1769; C2617; J0696; J1100; J1650; J1885; J1956; J2405; J3010; J3371; P9047; Q9967

== ENCOUNTER → 2022-11-19 19:32 | Outpatient (BNV) | payer OTHER, SELFPAY | PROVIDERS: Admitting Provider Student in an Organized Health Care Education/Training Program; Emergency Provider Emergency Medicine; Visit Provider Urology | DX: N20.1 Calculus of ureter (principal) | CPT/HCPCS: 52332; 74420 ==

== ENCOUNTER → 2022-11-19 19:32 | Outpatient (BNV) | payer OTHER, SELFPAY | PROVIDERS: Admitting Provider Student in an Organized Health Care Education/Training Program; Emergency Provider Emergency Medicine; Visit Provider Internal Medicine | DX: N20.0 Calculus of kidney (principal); R78.81 Bacteremia; N39.0 Urinary tract infection, site not specified; A41.9 Sepsis, unspecified organism; R65.21 Severe sepsis with septic shock | CPT/HCPCS: 99222 ==

== ENCOUNTER → 2022-11-19 19:32 | Outpatient (BNV) | payer OTHER, SELFPAY | PROVIDERS: Admitting Provider Student in an Organized Health Care Education/Training Program; Emergency Provider Emergency Medicine; Visit Provider Student in an Organized Health Care Education/Training Program | DX: A41.9 Sepsis, unspecified organism (principal); R65.20 Severe sepsis without septic shock; N39.0 Urinary tract infection, site not specified; N20.0 Calculus of kidney; N13.30 Unspecified hydronephrosis; G93.41 Metabolic encephalopathy | CPT/HCPCS: 99222; 99232; 99233; 99239 ==

== ENCOUNTER 2023-01-12 13:51 | Outpatient (AMB) | payer OTHER, SELFPAY ==
--- NOTE | 2023-01-12 14:25 | A.OFFVIS_ITS ---
Intake Intake Visit Reasons: cystoscopy/stent removal Intake Note: Patient presents for Cystoscopy Urology Medications: none Blood Thinner: aspirin Baggage Security Checker Required: Yes Baggage Security Checker Name: Elisabeth Cook Accompanied by: Daughter Allergies No Known Allergies Allergy (Verified 01/12/23 18:04) Medication List - Last Reconciled 01/12/23 by MOSES Carter [adult pull-ups As directed] albuterol sulfate 1.25 mg (1.5 mL) inhalation TID PRN 2 months aspirin 81 mg PO DAILY biosynthetic glove (Biobrane Gloves Small bandage) Use 1 pair as needed bisacodyl 10 mg [place] DAILY PRN 90 days blood sugar diagnostic (Accu-Chek Arianne Plus test strips) As directed divalproex 375 mg (3 x 125 mg) PO BID 90 days folic acid 1 mg PO DAILY levothyroxine 50 mcg PO QAM [lift chair As directed] multivitamin 1 tab PO DAILY 90 days nystatin 1 appl topical BID 2 weeks [pillow As directed] polyethylene glycol 3350 17 grams PO DAILY PRN underpads (Goodnites Bed Mats) As directed [wheelchair As directed] [wipes As directed] HPI HPI Comments History of Present Illness Details Radha is a nonverbal 82-year-old female patient who is accompanied by her daughter Lyric her primary transitional care liaison at [facility] office visit. She has a PMH of hypercholesterolemia, wheelchair reid, urinary incontinence, seizures, cataracts, obstructive sleep apnea, severe dementia, and hypothyrodism. She presents to the office today for a follow up. She is s/p cystoscopy, left retrograde, left dilatation of ureteric orifice under fluoroscopy, left ureteroscopy, and left stent placement for distal left uterine stone with Dr. Joyce on 11/23/22. Patient was left with left ureteral stent with string however unfortunately during patient transfer from operative table to the stretcher the stent was pulled from the bladder. Decision was made not to replace. Cystoscopy performed in office today. Bladder appears normal and no abnormality detected. Discussed at length potential causes of nephrolithiasis. Discussed survailance monitoring of nephrolithaisis. Also discussed metabolic workup however given patients comorbidities this is not ideal at this time. Daughter reports patients baseline is incontinence and she offers no urological issues or concerns. When asked she denies patient to have any bothersome urinary issues or concerns. [facility] Medical History Pure hypercholesterolemia Rash Wheelchair bound Urinary incontinence Blurry vision Rib pain Candidal intertrigo Seizures Cataract Unsteady gait LANDY (obstructive sleep apnea) Incontinence Dementia Physical exam, annual Hypothyroidism Surgical History No pertinent past surgical history Family History Father No problems noted. Mother No problems noted. Maternal Grandmother Diabetes Hypertension Family/Other FH: mental illness Social History Household Members: Family Housing: Apartment Do you presently have visiting nurse or other home services: Yes Alcohol intake: never Patient Tobacco Use Status: Never used Tobacco e-Cigarette/Vaping Use: Never Used Second Hand Smoke Exposure: No service: No Current occupational status: disabled Cognitive needs: Yes Hearing needs: No Vision needs: No Review of Systems Const Unobtainable due to mental status Physical Exam Const General: comfortable, no acute distress, well developed, lethargic and tired appearing Nutritional Appearance: thin Orientation/consciousness: lethargic Limitations: wheelchair HEENT Head: Yes normal to inspection, Yes normocephalic and Yes atraumatic Neck Neck: Yes normal visual inspection Chest Chest palpation & inspection: normal inspection of the chest Resp Effort & Inspection: normal respiratory effort Cardio Rate: regular rate GI Inspection: Yes normal to inspection External Female Exam: normal external appearance and normal appearance of the urethra Speculum Exam - Vagina: normal appearance of the vagina Extrem Other: cachectic/upper and lower extremities contracted Psych Appearance: well kempt Mental Status: other (lethargic ) Speech and movement: Slowed movement present (Neuro) (nonverbal) Attitude: cooperative Insight: Limited insight present (Psych) and Poor insight present (Psych) Judgement: Limited judgement present (Psych) and Poor judgement present (Psych) Office Procedures Cystoscopy Consent Discussed risk and benefit or proposed procedure with the patient. Information consent for procedure given to the patient. Discussed technical aspects, risks, benefits and alternatives in full. Addressed all of the patient's questions and concerns regarding the procedure. The patient demonstrated knowledge and understanding. They wish to proceed with this procedure. Preparation The patient was prepped in the usual manner. A test skein winder was present and in the room. Genitalia was prepped with betadine solution in a sterile manner. Lidocaine Jelly 2% was placed into the urethra and 16Fr flexible Olympus cystoscope was inserted into the meatus after adequate lubrication. Cystoscopy Consent Discussed risk and benefit or proposed procedure with the patient. Information consent for procedure given to the patient. Discussed technical aspects, risks, benefits and alternatives in full. Addressed all of the patient's questions and concerns regarding the procedure. The patient demonstrated knowledge and understanding. They wish to proceed with this procedure. Preparation The patient was prepped in the usual manner. A test skein winder was present and in the room. Genitalia was prepped with betadine solution in a sterile manner. Lidocaine Jelly 2% was placed into the urethra and 16Fr flexible Olympus cystoscope was inserted into the meatus after adequate lubrication. Procedure A well lubricated 16 Polish cystoscope was placed No abnormality noted of urethra during placement The patient tolerated the procedure well [id number] Procedure code (CPT) selection complete Assessment & Plan Assessment & Plan (1) Nephrolithiasis: Code(s): N20.0 - Calculus of kidney (2) Urinary incontinence: Code(s): R32 - Unspecified urinary incontinence (3) Hydronephrosis: Code(s): N13.30 - Unspecified hydronephrosis Plan Unable to obtain urine for urinalysis as patient is incontinent Cystoscopy performed in office; NAD Patients daughter offers no urological issues or concerns at this time. Discussed obtaining renal ultrasound for further assessment evaluation. Follow-up in 3 months with imaging to be completed prior; or sooner with any issues, concerns, and or questions. Orders: Orders US renal BI Today N20.0 - Calculus of kidney AMB Cystoscopy Today N13.30 - Unspecified hydronephrosis, N20.0 - Calculus of kidney, R32 - Unspecified urinary incontinence Medications: New lidocaine HCl 2% 10 mL intra-urethral ONCE 10 mL 0RF N13.30 - Unspecified hydronephrosis, N20.0 - Calculus of kidney, R32 - Unspecified urinary incontinence Patient Instructions: The patient had an opportunity to ask questions regarding the treatment plan. All questions were answered. Physical exam, labs, and imaging were discussed and reviewed in detail. As well as risks, benefits, and discussion of treatment choices. No major barriers to understanding were identified. The patient expressed understanding and agreement with the above treatment plan. The patient was made aware they should contact our office by phone for worsening of their current condition, the appearance of new symptoms, or with any questions or concerns. Compliance is encouraged with any medications and follow up testing that is ordered. It is a privilege to be allowed the opportunity to participate in? your urological care.? Again, if you have any questions or concerns If you have any questions or concerns please do not hesitate to contact me. The office is [phone]. This note is constructed using voice recognition software. While every effort has been made to ensure accuracy railcar brake operator errors may have been included. Yours sincerely, MOSES Carter Coding Level of Care Code Est Pt Level 4 (70956) Diagnoses Nephrolithiasis N20.0 Urinary incontinence R32 Hydronephrosis N13.30 CPT Codes Cystoscopy - CPT: [id number] ([id number]) Time Spent (min) 45
== END 2023-01-12 15:59 | disposition home or self-care (01) ==
PROVIDERS: Visit Provider Nurse Practitioner Family
DX: N20.0 Calculus of kidney (principal); R32 Unspecified urinary incontinence; N13.30 Unspecified hydronephrosis
CPT/HCPCS: 52000; 99214

== ENCOUNTER → 2023-01-12 13:51 | Outpatient (BNVA) | payer OTHER, SELFPAY | PROVIDERS: Visit Provider Nurse Practitioner Family | DX: N20.0 Calculus of kidney (principal); N13.30 Unspecified hydronephrosis; R32 Unspecified urinary incontinence | CPT/HCPCS: 52000; 99212 ==

== ENCOUNTER 2023-04-06 13:38 | Outpatient (REF) | payer OTHER, SELFPAY ==
--- NOTE | ~2023-04-06 | US_ITS ---
EXAMINATION: US RETROPERITONEAL LIMITED (RENAL ONLY) CLINICAL INFORMATION: Calculus of kidney. COMPARISON: CT abdomen and pelvis 11/22/2022. TECHNIQUE: Real-time imaging of the kidneys. Technically difficult study secondary to the patient being scanned in a wheelchair. FINDINGS: RIGHT KIDNEY: 8.9 x 4.4 x 3.5 cm (SAG x AP x TRV). The kidney is normal in size, contour, and echogenicity. Renal cortical thickness is normal. No calculi or focal parenchymal lesions. There is mild pelviectasis, without emily hydronephrosis. LEFT KIDNEY: 8.9 x 4.6 x 4.4 cm (SAG x AP x TRV). The kidney is normal in size, contour, and echogenicity. Renal cortical thickness is normal. No renal calculi or hydronephrosis. At the lower pole, a 1.6 cm benign, simple cyst is seen, which requires no imaging follow-up. US/US renal BI IMPRESSION: Unremarkable examination, technically limited.
== END 2023-04-06 13:39 | disposition home or self-care (01) ==
LOC: HO.US 13:38
PROVIDERS: Visit Provider Nurse Practitioner Family
DX: N20.0 Calculus of kidney (principal)
CPT/HCPCS: 76775

== ENCOUNTER 2023-04-15 13:45 | Outpatient (AMB) | payer OTHER, SELFPAY ==
--- NOTE | 2023-04-15 13:45 | A.OFFVIS_ITS ---
Intake Intake Visit Reasons: 3M US(set) Intake Note: Patient presents today for follow up kidney stone and Ultrasound results Imagin04/06/23 Urology Medications: none Blood Thinner: aspirin White Sugar Syrup Operator Required: Yes White Sugar Syrup Operator Name: TALIB GUIDOGABY Accompanied by: Daughter Allergies No Known Allergies Allergy (Verified 04/15/23 14:09) Medication List - Last Reconciled 04/15/23 by AKHIL Carter-BC [adult pull-ups As directed] albuterol sulfate 1.25 mg (1.5 mL) inhalation TID PRN 2 months aspirin 81 mg PO DAILY biosynthetic glove (Biobrane Gloves Small bandage) Use 1 pair as needed bisacodyl 10 mg DC DAILY PRN 90 days blood sugar diagnostic (Accu-Chek Arianne Plus test strips) As directed divalproex 375 mg (3 x 125 mg) PO BID 90 days folic acid 1 mg PO DAILY levothyroxine 50 mcg PO QAM [lift chair As directed] multivitamin 1 tab PO DAILY 90 days nystatin 1 appl topical BID 2 weeks [pillow As directed] polyethylene glycol 3350 17 grams PO DAILY PRN underpads (Goodnites Bed Mats) As directed [wheelchair As directed] [wipes As directed] HPI HPI Comments History of Present Illness Details Radha is a nonverbal 82-year-old female patient who is accompanied by her daughter Lyric her primary family day care provider during today's telehealth appointment. She has a PMH of hypercholesterolemia, wheelchair reid, urinary incontinence, seizures, cataracts, obstructive sleep apnea, severe dementia, and hypothyrodism. She is being follow-up on today via telehealth for her history of nephrolithiasis. Of note, patient underwent cystoscopy, left retrograde, left dilatation of ureteric orifice under fluoroscopy, left ureteroscopy, and left stent placement for distal left uterine stone with Dr. Joyce on 11/23/22. Recent renal ultrasound results reviewed with the patient's daughter today. Bilateral kidneys with no calculi or hydronephrosis. Left kidney with lower pole 1.6 cm benign simple cyst requiring no follow-up imaging per radiology report. Unremarkable examination. Patient's daughter denies patient to be having any issues or concerns at this time. The patient is baseline incontinent. She does however discuss following up at [facility] at which time patient's urinalysis noted abnormality however she is unsure exactly why or what abnormality. Discussed unable to collect urine as today's appointment is telehealth. Will add urinalysis order to further assess and evaluate. She otherwise denies patient to have any bothersome issues or concerns. Discussed metabolic workup however given patients comorbidities this is not ideal at this time. [facility] Medical History Pure hypercholesterolemia Rash Wheelchair bound Urinary incontinence Blurry vision Rib pain Candidal intertrigo Seizures Cataract Unsteady gait LANDY (obstructive sleep apnea) Incontinence Dementia Physical exam, annual Hypothyroidism Surgical History No pertinent past surgical history Family History Father No problems noted. Mother No problems noted. Maternal Grandmother Diabetes Hypertension Family/Other FH: mental illness Social History Household Members: Family Housing: Apartment Do you presently have visiting nurse or other home services: Yes Alcohol intake: never Comment: family/family day care provider in room Patient Tobacco Use Status: Never used Tobacco e-Cigarette/Vaping Use: Never Used Second Hand Smoke Exposure: No service: No Current occupational status: disabled Cognitive needs: Yes Hearing needs: No Vision needs: No Review of Systems Const Unobtainable due to mental status Physical Exam Const Other: Unable patient nonverbal and visit was over the phone not via video telehealth. Spoke with patients daughter patients primary apartment maintenance supervisor as noted in HPI. Psych Insight: Limited insight present (Psych) Judgement: Limited judgement present (Psych) Results Reviewed Results Reviewed: Date of Service: 04/06/23 EXAMINATION: US RETROPERITONEAL LIMITED (RENAL ONLY) FINDINGS: RIGHT KIDNEY: 8.9 x 4.4 x 3.5 cm (SAG x AP x TRV). The kidney is normal in size, contour, and echogenicity. Renal cortical thickness is normal. No calculi or focal parenchymal lesions. There is mild pelviectasis, without emily hydronephrosis. LEFT KIDNEY: 8.9 x 4.6 x 4.4 cm (SAG x AP x TRV). The kidney is normal in size, contour, and echogenicity. Renal cortical thickness is normal. No renal calculi or hydronephrosis. At the lower pole, a 1.6 cm benign, simple cyst is seen, which requires no imaging follow-up. IMPRESSION: Unremarkable examination, technically limited. Assessment & Plan Assessment & Plan (1) Nephrolithiasis: Code(s): N20.0 - Calculus of kidney (2) Urinary incontinence: Code(s): R32 - Unspecified urinary incontinence Plan Recent renal imaging results reviewed with the daughter today; as noted above. Discussed at length potential causes of nephrolithiasis. Will obtain urinalysis for further assessment evaluation; as noted in HPI Patient's daughter currently denies any bothersome urinary issues or concerns; patient with baseline incontinence. Follow-up in 6 months; if not sooner with any issues, concerns, and or questions. Orders: Orders UA and rflx microscopic Today R32 - Unspecified urinary incontinence Patient Instructions: The patient had an opportunity to ask questions regarding the treatment plan. All questions were answered. Physical exam, labs, and imaging were discussed and reviewed in detail. As well as risks, benefits, and discussion of treatment choices. No major barriers to understanding were identified. The patient expressed understanding and agreement with the above treatment plan. The patient was made aware they should contact our office by phone for worsening of their current condition, the appearance of new symptoms, or with any questions or concerns. Compliance is encouraged with any medications and follow up testing that is ordered. It is a privilege to be allowed the opportunity to participate in? your urological care.? Again, if you have any questions or concerns If you have any questions or concerns please do not hesitate to contact me. The office is [phone]. This note is constructed using voice recognition software. While every effort has been made to ensure accuracy watch assembly inspector errors may have been included. Yours sincerely, [facility] Telehealth Location of provider rendering services: practice address Location of patient: address on file Patient Identification confirmed using: Name, : Yes Telehealth method: voice only Patient verbally consented to treatment: Yes Patient verbally consented to billing insurance company: Yes Patient informed of any privacy concerns related to visit: Yes Minutes spent on Phone/Video with Pt.: 20 Coding Level of Care Code Tele Est Pt Level 3 (87354) Diagnoses Nephrolithiasis N20.0 Urinary incontinence R32
== END 2023-04-15 14:20 | disposition home or self-care (01) ==
LOC: HO.HUSH 13:45
PROVIDERS: Visit Provider Nurse Practitioner Family
DX: N20.0 Calculus of kidney (principal); R32 Unspecified urinary incontinence
CPT/HCPCS: 99442

== ENCOUNTER → 2023-04-15 13:45 | Outpatient (BNVA) | payer OTHER, SELFPAY | PROVIDERS: Visit Provider Nurse Practitioner Family ==

== ENCOUNTER 2023-05-28 16:51 | Emergency (ER) | payer OTHER, SELFPAY ==
--- NOTE | 2023-05-28 | ECG_ITS ---
Test Reason : SEIZURE Blood Pressure : / mmHG Vent. Rate : 095 BPM Atrial Rate : 095 BPM P-R Int : 154 ms QRS Dur : 058 ms QT Int : 352 ms P-R-T Axes : 053 -42 070 degrees QTc Int : 442 ms Normal sinus rhythm Left axis deviation Inferior infarct , age undetermined Abnormal ECG When compared with ECG of 19-NOV-2022 14:04, Inferior infarct is now Present Referred By: Generic ED Physician Electronically Signed By:Leland Skinner
--- NOTE | ~2023-05-28 | XR_ITS ---
EXAMINATION: XR CHEST CLINICAL INFORMATION: Aspiration. COMPARISON: Chest radiograph 11/19/2022. TECHNIQUE: Frontal view of the chest was obtained. FINDINGS: Patient rotation limits evaluation. Stable appearance of the cardiomediastinal silhouette. Unchanged diffuse increased interstitial markings. New focal nodular-like opacity overlying the right anterior third rib. No pleural effusion or pneumothorax. Chronic deformity of the proximal right humerus. No acute osseous findings. XR/XR chest 1V IMPRESSION: 1. New focal nodular-like opacity overlying the right anterior third rib. Recommend correlation with a nonemergent chest CT. 2. Unchanged diffuse increased interstitial markings. 3. No pleural effusion or pneumothorax. 4. Chronic deformity of the proximal right humerus.
[2023-05-28 17:09] VITALS: BP 136/71; BP 162/46; PULSE 101; PULSE 86; RESP 20; TEMP 36.6; O2SAT 97; O2SAT 99; BMI 21.9
--- NOTE | 2023-05-28 17:33 | ED_ITS ---
HPI - Seizure General Chief Complaint: Seizure Stated Complaint: seizure Time Seen by Provider: 05/28/23 17:26 Source: family Mode of arrival: EMS Limitations: altered mental status History of Present Illness HPI Narrative: Patient's history of dementia with seizure disorder on Depakote 375 mg twice daily last seizure was about 1 year ago which lasted for a minute. Today patient had 2 seizures back to back lasting only for few seconds on arrival patient is postictal. No fever no head injury patient bit her lips of daughter also noticed patient has a strong odor in the urine lately fairly compliant to the Depakote Seizure History: Yes Place: Home Related Data Previous Rx's Medication Instructions Recorded blood sugar diagnostic (Accu-Chek #10 ea 01/09/20 Arianne Plus test strips) albuterol sulfate 2.5 mg/3 mL 1.25 mg (1.5 mL) inhalation TID 09/28/20 (0.083 %) solution for nebulization PRN shortness of breath or wheezing 2 months #90 mL folic acid 1 mg tablet 1 mg PO DAILY #90 tabs 09/28/20 multivitamin 1 tab PO DAILY 90 days #90 tabs 01/20/21 pillow #1 ea 03/06/21 wheelchair #1 ea 03/06/21 levothyroxine 50 mcg tablet 50 mcg PO QAM for disorder of 10/04/21 thyroid gland #90 tabs nystatin 100,000 unit/gram topical 1 appl topical BID 2 weeks #15 10/11/21 cream grams bisacodyl 10 mg rectal suppository 10 mg OK DAILY PRN constipation 90 11/23/21 days #50 ea adult pull-ups #120 ea 02/19/22 biosynthetic glove (Biobrane #180 ea 02/19/22 Gloves Small bandage) underpads 2.6 X 2.9 feet #90 ea 02/19/22 (Goodnites Bed Mats) wipes #300 ea 02/19/22 aspirin 81 mg tablet,delayed 81 mg PO DAILY #90 tabs 06/18/22 release divalproex 125 mg capsule,delayed 375 mg (3 x 125 mg) PO BID 90 days 06/18/22 release sprinkle #540 caps lift chair #1 ea 11/26/22 polyethylene glycol 3350 17 gram 17 g PO DAILY PRN constipation #30 11/26/22 oral powder packet ea xochilt chair #1 ea 04/29/23 cefuroxime axetil 250 mg tablet 250 mg PO BID 7 days #14 tabs 05/29/23 Allergies Allergy/AdvReac Type Severity Reaction Status Date / Time No Known Allergies Allergy Verified 04/15/23 14:09 Review of Systems 2 Review of Systems: Yes all other systems are reviewed and are negative [facility] Past Medical History Medical History Pure hypercholesterolemia Rash Wheelchair bound Urinary incontinence Blurry vision Rib pain Candidal intertrigo Seizures Cataract Unsteady gait LANDY (obstructive sleep apnea) Incontinence Dementia Physical exam, annual Hypothyroidism Surgical History No pertinent past surgical history Family History Family History Father No problems noted. Mother No problems noted. Maternal Grandmother Diabetes Hypertension Family/Other FH: mental illness Social History Social History Household Members: Family Housing: Apartment Do you presently have visiting nurse or other home services: Yes Alcohol intake: never Comment: family/long term care phlebotomist in room Patient Tobacco Use Status: Never used Tobacco e-Cigarette/Vaping Use: Never Used Second Hand Smoke Exposure: No Advance Directives: No Advance Directives Information Provided: No service: No Current occupational status: disabled Cognitive needs: Yes Hearing needs: No Vision needs: No Physical Exam 2 Vital Signs: Vital Signs: Last Vital Signs Temp 97.8 F 05/28/23 17:09 Pulse 81 05/28/23 21:13 Resp 17 05/28/23 21:13 BP 118/69 05/28/23 19:25 Pulse Ox 98 05/28/23 21:13 O2 Del Method Room Air 05/28/23 21:13 BMI result Body Mass Index 21.9 Appearance: Lethargic patient is sleepy No acute distress. Postictal Eyes: Equal size reacting to light ENT: Pharynx normal. Oral Mucosa moist superficial abrasion to the lower lip, tongue is normal Neck: Normal inspection. Neck supple. CVS: Normal heart rate and rhythm. Pulses normal. Respiratory: No respiratory distress. Equal air entry bilateral, no wheezing/rales/rhonchi Abdomen: Soft and nontender. Bowel sounds are present, Skin: Skin warm and dry. Normal skin color. Normal skin turgor. Extremities: No lower extremity edema. No calf tenderness Neuro: Demented postictal Medications Administered Discontinued Medications Generic Name Dose Route Start Last Admin Trade Name Freq PRN Reason Stop Dose Admin Ceftriaxone Sodium 1 gm/ 50 mls @ 100 mls/hr 05/28/23 23:21 05/29/23 00:37 Sodium Chloride IV 05/28/23 23:50 Infused ONCE ONE Infusion Medical Decision Making Medical Decision Making [facility] Narrative: Patient with breakthrough seizure on Depakote last seizure was about a year ago noticed a slight UTI does have history of E coli bacteremia patient was given IV Rocephin in the ER at this time patient is not septic will prescribe her Ceftin advised to follow up as outpatient and report to the ER if high fever Differential Diagnosis Differential Diagnoses: The differential diagnosis associated with the presentation includes Epilepsy/UTI Lab Data [facility] Lab Attestation statement: I reviewed the patient's lab results. 05/28/23 18:44 05/28/23 18:44 Labs: Lab Results 05/28/23 05/28/23 Range/Units 18:44 21:14 WBC 9.3 (4.8-10.8) X10*3/uL RBC 4.09 L D (4.20-5.50) X10*6/uL Hgb 13.3 D (12.0-16.0) g/dl Hct 40.2 D (37.0-47.0) % MCV 98.3 H (80.0-98.0) fL MCH 32.5 (27.0-33.0) pg MCHC 33.1 (31.0-35.0) g/dl RDW 13.4 (11.0-16.0) % Plt Count 268 D (160-400) X10*3/uL MPV 8.9 L (9.4-12.3) fL Immature Gran % (Auto) 0.2 (0.0-0.4) % Neut % (Auto) 60.7 (45-73) % Lymph % (Auto) 30.3 (20-40) % Graves % (Auto) 7.1 (2-11) % Eos % (Auto) 1.5 (0-4) % Baso % (Auto) 0.2 (0-2) % Lymph # (Auto) 2.8 (1.2-4.9) X10*3/uL Graves # (Auto) 0.7 (0.1-1.2) X10*3/uL Eos # (Auto) 0.1 (0.0-0.4) X10*3/uL Baso # (Auto) 0.0 (0.0-0.2) X10*3/uL Abs Immat Gran (auto) 0.02 (0.00-0.03) X10*3/uL Absolute Neuts (auto) 5.6 (2.0-8.3) x10*3/uL Absolute Nucleated RBC 0.000 (0.0-0.012) X10*3/uL Nucleated RBC % (auto) 0.0 (0.0-0.2) /100WBC Sodium 142 (135-145) mmol/L Potassium 4.0 (3.3-5.1) mmol/L Chloride 104 (96-108) mmol/L Carbon Dioxide 33 H (22-29) mmol/L Anion Gap 9 L (12-20) BUN 16 (9-16) mg/dL Creatinine 0.93 (0.5-1.4) mg/dL Estim Creat Clear Calc 36.8 Estimated GFR 58 Random Glucose 91 (60-115) mg/dL Calcium 10.0 D (8.4-10.2) mg/dL Total Bilirubin 0.1 (0.0-1.0) mg/dL AST 17 (5-31) U/L ALT 9 (0-31) U/L Alkaline Phosphatase 74 (39-117) U/L Total Protein 8.9 H (6.5-8.0) g/dL Albumin 4.0 (3.5-5.0) g/dL Urine Color Dark Yellow Urine Appearance Cloudy Urine pH 8.0 (5.0-9.0) Ur Specific [place] 1.020 (1.005-1.025) Urine Protein Trace (Neg-Trace) mg/dL Urine Glucose (UA) Negative (Negative) mg/dL Urine Ketones Negative (Negative) mg/dL Urine Blood Moderate (2+) H (Negative) Urine Nitrite Negative (Negative) Ur Leukocyte Esterase Large (3+) H (Negative) Urine RBC >20 H (0-2) /HPF Urine WBC >50 H (0-5) /HPF Ur Squamous Epith Cells 11-20 (0-2) /HPF Urine Bacteria 4+ (None Seen) Hyaline Casts 3-5 (0-2) /LPF Valproic Acid 75.2 (50.0-100.0) mcg/mL Discharge Plan Discharge Clinical Impression: Seizures, Acute UTI Patient Disposition: Home, Self-Care Instructions: Recurrent Seizures in Adults (ED), Urinary Tract Infection in Older Adults (ED) Additional Instructions: Continue medication for seizures as prescribed Antibiotic for UTI as prescribed Report to the ER/PCP if high fever vomiting not getting better Prescriptions: New cefuroxime axetil 250 mg tablet 250 mg PO BID 7 Days Qty: 14 0RF No Action (DME) Accu-Chek Arianne Plus test strp Strip See Rx Instructions .ROUTE .MEDSUPPLY Qty: 10 2RF Rx Instructions: As directed folic acid 1 mg tablet 1 mg PO DAILY Qty: 90 3RF albuterol sulfate 2.5 mg /3 mL (0.083 %) solution for nebulization 1.25 mg inhalation TID PRN (Reason: shortness of breath or wheezing) 60 Days Qty: 90 6RF multivitamin Tablet 1 tab PO DAILY 90 Days Qty: 90 3RF levothyroxine 50 mcg tablet 50 mcg PO QAM Qty: 90 1RF nystatin 100,000 unit/gram cream 1 appl topical BID 14 Days Qty: 15 1RF bisacodyl 10 mg suppository 10 mg OK DAILY PRN (Reason: constipation) 90 Days Qty: 50 3RF (DME) wipes See Rx Instructions .Route .MEDSUPPLY Qty: 300 11RF Rx Instructions: As directed (DME) Goodnites Bed Mats 2.6 X 2.9 feet pad See Rx Instructions .ROUTE .MEDSUPPLY Qty: 90 11RF Rx Instructions: As directed (DME) adult pull-ups medium See Rx Instructions .Route .MEDSUPPLY Qty: 120 11RF Rx Instructions: As directed (DME) Biobrane Gloves Small Bandage See Rx Instructions .ROUTE .MEDSUPPLY Qty: 180 11RF Rx Instructions: Use 1 pair as needed (DME) lift chair See Rx Instructions .Route .MEDSUPPLY Qty: 1 0RF Rx Instructions: As directed (DME) xochilt chair See Rx Instructions .Route .MEDSUPPLY Qty: 1 0RF Rx Instructions: As directed polyethylene glycol 3350 17 gram Powder In Packet 17 g PO DAILY PRN (Reason: constipation) Qty: 30 0RF (DME) wheelchair with seatbelt See Rx Instructions .Route .MEDSUPPLY Qty: 1 0RF Rx Instructions: As directed (DME) pillow See Rx Instructions .Route .MEDSUPPLY Qty: 1 0RF Rx Instructions: As directed aspirin 81 mg tablet,delayed release (DR/EC) 81 mg PO DAILY Qty: 90 3RF divalproex 125 mg capsule, delayed rel sprinkle 375 mg PO BID 90 Days Qty: 540 3RF lidocaine HCl 2 % jelly in applicator 10 ml intra-urethral ONCE Qty: 10 0RF
[2023-05-28 18:48] LABS: MANUAL DIFF FLAG NO
[2023-05-28 18:50] LABS: Basophils Percent Auto 0.2 % (0-2); Eosinophils Absolute Auto 0.1 X10*3/uL (0.0-0.4); Eosinophils Percent Auto 1.5 % (0-4); Hematocrit 40.2 % (37.0-47.0); Hemoglobin 13.3 g/dl (12.0-16.0); Imm Gran Abs Auto 0.02 X10*3/uL (0.00-0.03); Imm Gran Pct Auto 0.2 % (0.0-0.4); Lymphocytes Absolute Auto 2.8 X10*3/uL (1.2-4.9); Lymphocytes Percent Auto 30.3 % (20-40); Mean Corpuscular HGB Conc 33.1 g/dl (31.0-35.0); Mean Corpuscular Hemoglobin 32.5 pg (27.0-33.0); Mean Corpuscular Volume 98.3 fL (80.0-98.0); Mean Platelet Volume 8.9 fL (9.4-12.3); Monocytes Absolute Auto 0.7 X10*3/uL (0.1-1.2); Monocytes Percent Auto 7.1 % (2-11); Neutrophils Absolute Auto 5.6 x10*3/uL (2.0-8.3); Neutrophils Percent Auto 60.7 % (45-73); Platelet Count 268 X10*3/uL (160-400); Red Blood Count 4.09 X10*6/uL (4.20-5.50); Red Cell Distribution Width 13.4 % (11.0-16.0); White Blood Count 9.3 X10*3/uL (4.8-10.8)
[2023-05-28 19:01] LABS: Valproate 75.2 mcg/mL (50.0-100.0)
[2023-05-28 19:04] LABS: Alanine Aminotransferase 9 U/L (0-31); Alkaline Phosphatase 74 U/L (39-117); Anion Gap 9 (12-20); Aspartate Amino Transferase 17 U/L (5-31); Bilirubin Total 0.1 mg/dL (0.0-1.0); Blood Urea Nitrogen 16 mg/dL (9-16); Carbon Dioxide 33 mmol/L (22-29); Chloride 104 mmol/L (96-108); Creatinine Clr Calc Pharmacy 36.8; Estimated Glomerular Filt Rate 58; Glucose Random 91 mg/dL (60-115); Sodium 142 mmol/L (135-145); Total Protein 8.9 g/dL (6.5-8.0)
[2023-05-28 19:25] VITALS: BP 118/69; PULSE 79; RESP 18; O2SAT 100
--- NOTE | 2023-05-28 19:28 | PC.NURSE ---
Assumed care of the pt at 1900. Pt resting in bed at this time, on automatic spinning lathe setter, with a 20g IV in the right EC. Pt daughter is at the bedside. Pt appears in no distress
[2023-05-28 21:13] VITALS: PULSE 81; RESP 17; O2SAT 98
[2023-05-28 21:23] LABS: Appearance Urine Cloudy; Color Urine Dark Yellow; Glucose Urine UA Negative (Negative); Leukocyte Esterase Urine Large (3+) (Negative); Nitrite Urine Negative (Negative); UMIC TRIGGER UACC YES; Urine Blood Moderate (2+) (Negative); Urine Ketones Negative (Negative); Urine Protein Trace mg/dL (Neg-Trace)
[2023-05-28 22:26] LABS: Bacteria Urine 4+ (None Seen); RBC Urine >20 /HPF (0-2); UACC Culture Trigger YES; WBC Urine >50 /HPF (0-5)
[2023-05-28] MEDS: cefTRIAXone sodium 1 GM in 0.9 % Sodium Chloride 50 ML IV (23:31)
--- NOTE | 2023-05-28 23:34 | MHC.EDTECH ---
CALL OUT TO [facility] AT 2334 TO BOOK TRANSPORT BACK HOME FOR PT, ESTIMATED ETA GIVEN WAS 0015
[2023-05-29 01:28] VITALS: BP 129/72; PULSE 81; RESP 12; TEMP 36.7; O2SAT 98
[2023-05-29 02:28] VITALS: BP 129/72; PULSE 81; RESP 18; TEMP 36.7; O2SAT 98
== END 2023-05-29 02:29 | disposition home or self-care (01) ==
PROVIDERS: Emergency Provider Internal Medicine
DX: R56.9 Unspecified convulsions (principal); N39.0 Urinary tract infection, site not specified; R94.31 Abnormal electrocardiogram [ECG] [EKG]; Z79.899 Other long term (current) drug therapy
CPT/HCPCS: 36415; 71045; 80053; 80164; 81001; 85025; 87086; 93005; 96365; 99284; J0696

== ENCOUNTER → 2023-05-28 17:12 | Outpatient (BNV) | payer OTHER, SELFPAY | PROVIDERS: Emergency Provider Internal Medicine; Visit Provider Internal Medicine Cardiovascular Disease | DX: R94.31 Abnormal electrocardiogram [ECG] [EKG] (principal) | CPT/HCPCS: 93010 ==